=== PATIENT | female | born 1995 | race Two or more races ===

== ENCOUNTER 2021-10-27 11:29 | Outpatient (REF) | payer OTHER, SELFPAY ==
--- NOTE | 2021-10-27 13:59 | MHC.AU.ANO ---
Adult Audiological Evaluation Date of Visit: 10/27/21 Radio Talk Show Host Used: Not Applicable Reason for Appointment: Audiologic re-evaluation due to significant increase in hearing difficulties, sound distortion, and tinnitus for the left ear. 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 She was fit with a Right Phonak Bolero B 50-P aid for the right ear and a Phonak CROS B-312 for the left ear in October 2017. Raisa reported she had difficulty adjusting to the CROS system and only wore them for work. Last year she lost the hearing aids during a move and needs replacements. Does patient feel they have a hearing loss?: Yes If Yes, Which Ear?: Left Ear When Was Hearing Difficulty First Noticed?: Age 16 Has hearing been tested previously?: Yes Previous Hearing Test Results: Right ear - Normal hearing thresholds through all frequencies with 100% speech understanding at 45 dB HL. Left ear - Severe mixed hearing loss at 250 and 500 Hz, rising to a moderate loss at 6281-1501 Hz, dropping to a profound sensorineural hearing loss at 8000 Hz. with 68% speech discrimination at 100 dB HL Ear History: Bothersome Tinnitus/Ringing/Noises in Ears: Left Ear Medical History: Medication List: Tramadol, Seroquel, Vistaril Otoscopy: Right Ear: Unremarkable Left Ear: Unremarkable Tympanometry: Tympanometry performed due to: To assess integrity of the middle ear system Right Ear: Normal Middle Ear System (Type A) Left Ear: Hypercompliant Middle Ear System (Type Ad) Otoacoustic Emissions Not performed at today's visit. Hearing Evaluation: Transducer(s) Used: Insert Earphones Bone Conduction Method: Conventional Audiometry Stimuli Used: Pure Tones Right Ear: Description of Hearing: Normal hearing thresholds 250-8000 Hz. Left Ear: Description of Hearing: Severe rising to moderately-severe mixed hearing loss at 250-4000 Hz, dropping to a profound loss at 8000 Hz. Speech Recognition Threshold (SRT): Method Used: Monitored Live Voice Stimuli Used: Spondee Words Right Ear: 5 dB HL Left Ear: 70 dB HL Word Discrimination: Method: Recorded Lists Word Lists Used: NU-6 Right Ear: 100% at 50 dB HL Left Ear: 10% at 95 dB HL 20% at 100 dB HL Most Comfortable Level (MCL): Left Ear: 95 dB HL Comparison: Compared to most recent evaluation: Right ear thresholds and speech understanding is overall stable. Left ear thresholds have decreased 5-10 dB with a significant decrease in speech understanding. Recommendations: Referral to Camera Repair Technician Dr. Jose Jacobs is recommended for further assessment of the signficant decrease in left ear speech discrimination, increased tinnitus, and ear discomfort. If medically cleared for a CROS system, will obtain prior authorization for replacement hearing aids as the lost aids were received less than 5 years ago. Audiological re-evaluation in one year. Will send a reminder card. Diagnosis: Primary Diagnosis: H90.72 Mixed HL, Unilateral, Left Ear, W/Unrestricted Contralateral Secondary Diagnosis: H69.92 Unspecified Eustachian Tube Dysfunction, Left Ear Services Performed: Comprehensive Audiological Evaluation (CPT 41329) Tympanometry (CPT 43747) Signature: Provider: Carlton Trivedi, CCC-A
== END 2021-10-27 11:30 | disposition home or self-care (01) ==
LOC: HO.SH 11:29
PROVIDERS: Visit Provider Physician Assistant
DX: H90.72 Mixed conductive and sensorineural hearing loss, unilateral, left ear, with unrestricted hearing on the contralateral side (principal); H69.92 Unspecified Eustachian tube disorder, left ear
CPT/HCPCS: 92557; 92567

== ENCOUNTER 2022-11-20 17:13 | Inpatient (IN) | payer OTHER, SELFPAY ==
--- NOTE | ~2022-11-20 | XR_ITS ---
EXAMINATION: XR WRIST, LEFT CLINICAL INFORMATION: Swelling and pain COMPARISON: None TECHNIQUE: PA, lateral, oblique, and scaphoid views of the left wrist. FINDINGS: No acute fracture or dislocation. Joint spaces are maintained. Scapholunate interval is preserved. Soft tissue swelling about the wrist. XR/XR wrist LT min 3V IMPRESSION: 1. No acute osseous injury. 2. Prominent soft tissue tissue swelling about the wrist.
--- NOTE | 2022-11-20 17:26 | ED.PSYCH ---
HPI - Psych General Stated Complaint: SEC 12, restrained per EMS Time Seen by Provider: 11/20/22 17:26 Source: EMS Mode of arrival: EMS Limitations: other (Unwilling to talk) History of Present Illness HPI Narrative: Patient comes to the emergency room via ambulance from [facility] in the community. Patient was in an appointment, endorsed suicidal ideation with a plan of overdosing. She was Section 12. Patient ran out of the building, tried running into traffic, patient had to be physically restrain. Here in the emergency room, patient is calm, unwilling to talk, but willing to cooperate, get changed over and get blood work. Related Data Allergies Allergy/AdvReac Type Severity Reaction Status Date / Time No Known Allergies Allergy Unverified 07/29/20 18:59 [No Known Allergies*] Review of Systems Review of Systems: Yes Other (Unwilling to talk) [facility] Past Medical History Source: unable to obtain (Patient unwilling to talk) Physical Exam Const: Other: Appearance: Alert. No acute distress. Eyes: Pupils equal, round and reactive to light. ENT: Pharynx normal. Neck: Normal inspection. Neck supple. No lymph nodes noted. No crepitus CVS: Normal heart rate and rhythm. Pulses normal. Normal S1 and S2 Respiratory: No respiratory distress. Breath sounds normal. No Wheezing. No rales Abdomen: Soft and nontender. No rigidity. No distention. Skin: Skin warm and dry. Normal skin color. Normal skin turgor. Extremities: No lower extremity edema. No Lacerations. No Rash Neuro: CN 2 through 12 grossly intact Psych: calm, unwilling to talk, flat affect Course Course Course Narrative: Patient came in handcuffs and soft restraints in the lower extremities. They were all removed, patient still unwilling to talk but she is following directions. Blood work pending. Care team consult pending. Physician observation started at 17:30 Medical Decision Making Differential Diagnosis Differential Diagnoses: The differential diagnosis associated with the presentation includes (Suicidal ideation, depression, anxiety) Admission/Observation Consideration of admission/observation: Escalation of care including admission/observation considered (Patient will be on observation until [facility] or the care team can talk to the patient.) Discharge Plan Discharge Clinical Impression: Suicidal ideation Patient Disposition: Still a Patient
[2022-11-20 17:27] VITALS: BP 132/77; PULSE 86; RESP 18; TEMP 37.2; O2SAT 100; BMI 18.6
[2022-11-20 17:59] LABS: Appearance Urine Cloudy; Color Urine Yellow; Glucose Urine UA Negative (Negative); Leukocyte Esterase Urine Negative (Negative); Nitrite Urine Negative (Negative); PH 5.5 (5.0-9.0); Specific Gravity - Urine 1.015 (1.005-1.025); UMIC TRIGGER UACC YES; Urine Blood Moderate (2+) (Negative); Urine Ketones Trace mg/dL (Negative); Urine Protein 300 (3+) mg/dL (Neg-Trace)
[2022-11-20 18:00] LABS: UPreg QC Valid YES; Urine Pregnancy NEGATIVE (NEGATIVE)
[2022-11-20 18:08] LABS: Amphetamine Screen Urine Not Detected (Not Detect); Barbiturates, Urine Not Detected (Not Detect); Benzodiazepines Screen Urine Not Detected (Not Detect); Cannabinoid Screen Urine POSITIVE (Not Detect); Cocaine Screen Urine Not Detected (Not Detect); Fentanyl, urine Not Detected (Not Detect); Opiate Screen Urine Not Detected (Not Detect); Phencyclidine Screen Urine Not Detected (Not Detect)
[2022-11-20 18:12] LABS: COVID-19 Test Negative (Negative); IDNOW Serial# 16C4AD1C
[2022-11-20 18:17] LABS: Bacteria Urine 1+ (None Seen); UACC Culture Trigger YES
--- NOTE | 2022-11-20 18:28 | MHC.CARE ---
[facility]O evaluated pt in the community and she arrives as a bedsearch.
--- NOTE | 2022-11-20 21:59 | MHC.EDTECH ---
PATIENT CONTINUES TO REFUSE LABS. RN AWARE.
[2022-11-21] MEDS: hydrOXYzine HCL 50 MG TABLET PO ×2 (05:40→11:17)
--- NOTE | 2022-11-21 05:45 | PC.NURSE ---
Patient slept through the night, no distress observed/reported, patient just woke up reported anxiety/Hydroxyzine 50 mg administered as ordered/pending effect, patient refused her night time medication, refused blood draw but compliant with remaining lab orders, behavior at this time is non concerning but unpredictable, disposition per [facility] is section 12 inpatient bed search, VSS, will continue to monitor.
[2022-11-21 05:54] VITALS: BP 146/81; PULSE 88; RESP 16; TEMP 36.7; O2SAT 98
[2022-11-21] MEDS: LORazepam 1 MG TABLET 2 MG PO (11:54)
--- NOTE | 2022-11-21 14:29 | MHC.CARE ---
Patient remains a bed search
[2022-11-21] MEDS: OLANZapine 5 MG TABLET PO (20:25)
[2022-11-21 20:31] VITALS: BP 125/61; PULSE 70; RESP 17; TEMP 37.1
--- NOTE | 2022-11-22 05:57 | PC.NURSE ---
Patient slept through the night, no distress observed/reported, medication compliant, continue refusing blood draw, behavior at this time is non concerning but unpredictable, disposition per [facility] is section 12 inpatient bed search, MSU completed by care team, SATHYA, will continue to monitor.
[2022-11-22 06:38] VITALS: BP 112/55; PULSE 65; RESP 15; TEMP 37.3; O2SAT 98
--- NOTE | 2022-11-22 07:10 | PC.NURSE ---
patient appears to remain at rest at present respirations are even and unlabored patient appears in no distress.
[2022-11-22] MEDS: hydrOXYzine HCL 50 MG TABLET PO ×3 (10:06→20:11)
[2022-11-22 12:31] VITALS: BP 119/72; PULSE 73; RESP 18; TEMP 36.9; O2SAT 98
--- NOTE | 2022-11-22 15:20 | PC.NURSE ---
report received from FENG Oconnor. Pt is requesting hydroxyzine for anxiety. Pt provided with PRN.
[2022-11-22 16:17] VITALS: BP 128/79; PULSE 71; RESP 16; TEMP 36.2; O2SAT 98
[2022-11-22 16:28] VITALS: BMI 21.7
[2022-11-22] MEDS: OLANZapine 5 MG TABLET PO (20:02)
[2022-11-22] MEDS: traZODone HCL 50 MG TABLET PO (21:25)
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
[2022-11-23 06:00] VITALS: BP 134/74; PULSE 66; RESP 16; TEMP 36.9; O2SAT 98
[2022-11-23 07:00] VITALS: BMI 21.7
[2022-11-23 09:00] LABS: Estimated Average Glucose 100 mg/dL; Hemoglobin A1c % 5.1 %
[2022-11-23] MEDS: hydrOXYzine HCL 50 MG TABLET PO ×3 (09:16→20:48)
[2022-11-23 09:29] LABS: Alanine Aminotransferase 25 U/L (0-31); Albumin Level 3.8 g/dL (3.5-5.0); Alkaline Phosphatase 40 U/L (39-117); Anion Gap 12 (12-20); Aspartate Amino Transferase 32 U/L (5-31); Bilirubin Total 0.4 mg/dL (0.0-1.0); Blood Urea Nitrogen 7 mg/dL (9-16); Calcium 8.9 mg/dL (8.4-10.2); Carbon Dioxide 22 mmol/L (22-29); Chloride 107 mmol/L (96-108); Cholesterol 163 mg/dL; Creatinine Clr Calc Pharmacy 91.5; Estimated Glomerular Filt Rate > 60; Glucose Fasting 93 mg/dL (60-99); HDL Cholesterol 45 mg/dL; LDL Cholesterol Calculated 109 mg/dl; Potassium 4.4 mmol/L (3.3-5.1); Sodium 137 mmol/L (135-145); Total Protein 6.4 g/dL (6.5-8.0); Triglycerides 47 mg/dL
[2022-11-23 09:30] LABS: Thyroid Stimulating Hormone 0.79 uIU/mL (0.32-4.0)
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
[2022-11-23] MEDS: Propranolol HCL 10 MG TABLET PO ×2 (11:18→20:05)
[2022-11-23] MEDS: Sertraline HCL 25 MG TABLET PO (11:18)
[2022-11-23 11:19] VITALS: BP 137/90
[2022-11-23 18:00] VITALS: BP 112/69; PULSE 78; RESP 16; TEMP 36; O2SAT 97
[2022-11-23] MEDS: OLANZapine 5 MG TABLET PO (20:05)
[2022-11-23 20:25] VITALS: BP 134/90; PULSE 79; RESP 16; TEMP 36.4; O2SAT 98
[2022-11-24 06:00] VITALS: BP 131/91; PULSE 86; RESP 16; TEMP 36.6; O2SAT 95
[2022-11-24] MEDS: hydrOXYzine HCL 50 MG TABLET PO (09:05)
[2022-11-24] MEDS: Sertraline HCL 25 MG TABLET PO (09:05)
[2022-11-24] MEDS: Propranolol HCL 10 MG TABLET PO (09:05)
--- NOTE | 2022-11-24 11:04 | HO.PSYCHPN ---
Subjective Subjective Date of Service: 11/24/22 Reason For Visit: SEC 12, restrained per EMS Subjective Notes: Conditional Voluntary Interim History: Pt reports poor sleep. She continues to report feeling anxious, which presents more as mild labile mood. Pt denies SI/HI. She reports periods of increase irritability. She denies VH/AH- does not appear internally preoccupied. we discussed increasing olanzapine 10mg po qhs. increase propranolol. Pt more open to try mood stabilizer such as lithium. Medication Compliance: Yes Side effects from medications: No Attending Groups: No Review of Systems Review of Systems Yes Other (Unwilling to talk) Constitutional: Reports no additional constitutional complaints Eyes: Reports no additional eye complaints Reports system reviewed and no additional complaints, except as documented Cardiovascular: Denies chest pain, Denies chest pain at rest, Denies lightheadedness and Denies dyspnea Respiratory: Denies cough and Denies dyspnea Mental Status Exam Mental Status Exam Narrative: Appearance:casually groomed, fair hygiene, in NAD Behavior: superficially cooperative Psychomotor: no agitation or retardation noted Speech: clear, normal rate/rhythm/volume, spontaneous TP: linear TC: no signs of psychosis, wanting to be referred to [facility] Mood: better Affect: less irritable SI: none HI: none Delusions: none VH/AH: none Insight/judgment: fair x 2. Memory/cog: alert, oriented x 3. grossly intact to conversational testing. Diagnostics Vital Signs (24Hr): Vital Signs - 24 hr 11/23/22 11:19 11/23/22 18:00 11/23/22 20:25 Temperature 96.8 F 97.6 F Pulse Rate 78 79 Respiratory Rate 16 16 Blood Pressure 137/90 H 112/69 134/90 H Pulse Oximetry 97 98 Oxygen Delivery Method Room Air Room Air 11/24/22 06:00 Temperature 97.9 F Pulse Rate 86 Respiratory Rate 16 Blood Pressure 131/91 H Pulse Oximetry 95 Oxygen Delivery Method Room Air BMI result Body Mass Index 21.7 Labs 11/23/22 08:15 Labs: Laboratory Results - last 48 hr 11/23/22 11/23/22 08:15 08:15 Sodium 137 Potassium 4.4 Chloride 107 Carbon Dioxide 22 Anion Gap 12 BUN 7 L Creatinine 0.77 Estim Creat Clear Calc 91.5 Estimated GFR > 60 Fasting Glucose 93 Estimat Average Glucose 100 Hemoglobin A1c % 5.1 Calcium 8.9 Total Bilirubin 0.4 AST 32 H ALT 25 Alkaline Phosphatase 40 Total Protein 6.4 L Albumin 3.8 Triglycerides 47 Cholesterol 163 LDL Cholesterol, Calc 109 HDL Cholesterol 45 TSH 0.79 Imaging Radiology Impressions: ITS Impressions Wrist X-Ray 11/20/22 18:57 IMPRESSION: 1. No acute osseous injury. 2. Prominent soft tissue tissue swelling about the wrist. Medications Medications Current Medications Acetaminophen (Acetaminophen 325 Mg Tablet) 650 mg PO Q6H PRN PRN Reason: Headache/Pain Mild Scale (1-3) Al Hydroxide/Mg Hydroxide (Magnesium Hydrox/Alum Hydrox 30 Ml Oral.Susp) 30 ml PO Q6H PRN PRN Reason: Heartburn/Nausea Hydroxyzine HCl (Hydroxyzine Hcl 50 Mg Tablet) 50 mg PO Q4H PRN PRN Reason: Anxiety Last Admin: 11/24/22 09:05 Dose: 50 mg Hydroxyzine HCl (Hydroxyzine Hcl 25 Mg Tablet) 25 mg PO Q6H PRN PRN Reason: Anxiety Magnesium Hydroxide (Milk Of Magnesia 30 Ml Oral.Susp) 30 ml PO DAILY PRN PRN Reason: Constipation Mirtazapine (Mirtazapine 15 Mg Tablet) 15 mg PO BEDTIME EMIR Olanzapine (Olanzapine 5 Mg Tablet) 5 mg PO BEDTIME EMIR Last Admin: 11/23/22 20:05 Dose: 5 mg Olanzapine (Olanzapine 10 Mg Tablet) 10 mg PO Q6H PRN PRN Reason: agitation Propranolol HCl (Propranolol Hcl 20 Mg Tablet) 20 mg PO TID EMIR; Protocol Sertraline HCl (Sertraline Hcl 25 Mg Tablet) 25 mg PO DAILY EMIR Last Admin: 11/24/22 09:05 Dose: 25 mg Trazodone HCl (Trazodone Hcl 50 Mg Tablet) 50 mg PO BEDTIME PRN PRN Reason: Insomnia Last Admin: 11/22/22 21:25 Dose: 50 mg Allergies Allergies Allergy/AdvReac Type Severity Reaction Status Date / Time No Known Allergies Allergy Unverified 07/29/20 18:59 [No Known Allergies*] Assessment & Plan Assessment & Plan (1) Bipolar 2 disorder: Status: Acute Code(s): F31.81 - Bipolar II disorder (2) Borderline personality disorder: Status: Acute Code(s): F60.3 - Borderline personality disorder Plan Ms. Telles is a 27 year-old woman with hx of Bipolar 2 disorder, PTSD, BPD who was assessed in her therapist office by N[facility]O after she disclosed SI with plan to OD. She has previous hx of OD on aspirin in 2019. Pt combative, explosive and irritable while in the ED. Uto negative. Today, less irritable, reports sertraline was helpful and wants to restart- discussed monitoring for increase irritability and labile mood. She also agrees to try propanolol for anxiety/impulsive behaviors with less impact on her BP. We discussed risks, benefits and alternative treatment options. PLAN 1. Admit to M5, CV, 15 minutes checks for safety 2. Start sertraline 25mg po daily, propanolol 10mg po BID, continue olanzapine 5mg po qhs. prn hydroxizine. 3. obtain collateral information 4. Aftercare planning. 11/24 more open to try mood stabilizer and increase olanzapine. Increase olanzapine to 10mg po qhs. Start lithium 300mg po BID, increase propanolol to 20mg po TID (initially prescribe for irritability as pt declined any other med changes). Reason for contiued inpatient stay Substantial Risk for: harm to self Time Spent With Patient Time: Total time managing care of this patient today ____ minutes.
[2022-11-24] MEDS: LORazepam 1 MG TABLET PO (12:12)
[2022-11-24] MEDS: Lithium Carbonate 300 MG CAPSULE PO ×2 (12:12→20:30)
[2022-11-24] MEDS: Propranolol HCL 20 MG TABLET PO ×2 (15:16→20:31)
[2022-11-24 18:00] VITALS: BP 137/92; PULSE 75; RESP 16; TEMP 36.4; O2SAT 96
[2022-11-24] MEDS: Mirtazapine 15 MG TABLET PO (20:30)
[2022-11-24] MEDS: OLANZapine 10 MG TABLET PO (20:31)
[2022-11-25 08:52] VITALS: BP 142/79; PULSE 56; RESP 16; TEMP 36.6; O2SAT 98
[2022-11-25] MEDS: Propranolol HCL 20 MG TABLET PO ×3 (08:56→21:23)
[2022-11-25] MEDS: Sertraline HCL 25 MG TABLET PO (08:56)
[2022-11-25] MEDS: Lithium Carbonate 300 MG CAPSULE PO ×2 (08:56→21:23)
[2022-11-25] MEDS: hydrOXYzine HCL 50 MG TABLET PO ×3 (08:56→17:40)
--- NOTE | 2022-11-25 10:32 | HO.PSYCHPN ---
Subjective Subjective Date of Service: 11/25/22 Reason For Visit: SEC 12, restrained per EMS Interim History: Patient talking a little briskly. Said she has trouble sleeping last night but does not want any medications changed at all. Including does not want lithium moved to bedtime. For while she initially said she is having trouble sleeping, she said she did not want to be too tired the next day either. Patient said propranolol has not helped with anxiety; blood pressure mildly elevated but heart rate is at 56 so promotion writer held off on increasing dose. Patient said she just wanted to remain on the same dose anyway and see how it goes. Patient reports that SI remains but it is chronic, is at a baseline level and able to be ignored Mental Status Exam Mental Status Exam Narrative: Pt is alert and oriented; behavior is cooperative but a little guarded; mostly calm; patient is not in distress; dressed in casual attire and well groomed; mood is described as ok and affect congruent; eye contact appropriate; Speech is a little brisk, mildly pressured but normal volume and prosody; no psychomotor agitation/retardation present; thought process is goal directed; Thought content is on tx; otherwise pertinent to relevant topics and without any delusional content, paranoid ideations or grandiosity; intermittent passive SI but able to be ignored; no HI. There is no evidence of perceptual disturbance and denies AVH. Patients insight and judgment are impaired but improved. Diagnostics Vital Signs (24Hr): Vital Signs - 24 hr 11/24/22 18:00 11/25/22 08:52 Temperature 97.6 F 97.8 F Pulse Rate 75 56 Respiratory Rate 16 16 Blood Pressure 137/92 H 142/79 H Pulse Oximetry 96 98 Oxygen Delivery Method Room Air Room Air BMI result Body Mass Index 21.7 Labs 11/23/22 08:15 Imaging Radiology Impressions: ITS Impressions Wrist X-Ray 11/20/22 18:57 IMPRESSION: 1. No acute osseous injury. 2. Prominent soft tissue tissue swelling about the wrist. Medications Medications Current Medications Acetaminophen (Acetaminophen 325 Mg Tablet) 650 mg PO Q6H PRN PRN Reason: Headache/Pain Mild Scale (1-3) Al Hydroxide/Mg Hydroxide (Magnesium Hydrox/Alum Hydrox 30 Ml Oral.Susp) 30 ml PO Q6H PRN PRN Reason: Heartburn/Nausea Hydroxyzine HCl (Hydroxyzine Hcl 50 Mg Tablet) 50 mg PO Q4H PRN PRN Reason: Anxiety Last Admin: 11/25/22 08:56 Dose: 50 mg Hydroxyzine HCl (Hydroxyzine Hcl 25 Mg Tablet) 25 mg PO Q6H PRN PRN Reason: Anxiety [place] Carbonate ([place] Carbonate 300 Mg Capsule) 300 mg PO BID [facility] Last Admin: 11/25/22 08:56 Dose: 300 mg Magnesium Hydroxide (Milk Of Magnesia 30 Ml Oral.Susp) 30 ml PO DAILY PRN PRN Reason: Constipation Mirtazapine (Mirtazapine 15 Mg Tablet) 15 mg PO BEDTIME EMIR Last Admin: 11/24/22 20:30 Dose: 15 mg Olanzapine (Olanzapine 10 Mg Tablet) 10 mg PO Q6H PRN PRN Reason: agitation Olanzapine (Olanzapine 10 Mg Tablet) 10 mg PO BEDTIME [facility] Last Admin: 11/24/22 20:31 Dose: 10 mg Propranolol HCl (Propranolol Hcl 20 Mg Tablet) 20 mg PO TID [facility]; Protocol Last Admin: 11/25/22 08:56 Dose: 20 mg Sertraline HCl (Sertraline Hcl 25 Mg Tablet) 25 mg PO DAILY [facility] Last Admin: 11/25/22 08:56 Dose: 25 mg Trazodone HCl (Trazodone Hcl 50 Mg Tablet) 50 mg PO BEDTIME PRN PRN Reason: Insomnia Last Admin: 11/22/22 21:25 Dose: 50 mg Allergies Allergies Allergy/AdvReac Type Severity Reaction Status Date / Time No Known Allergies Allergy Unverified 07/29/20 18:59 [No Known Allergies*] Assessment & Plan Assessment & Plan (1) Bipolar 2 disorder: Status: Acute Code(s): F31.81 - Bipolar II disorder (2) Borderline personality disorder: Status: Acute Code(s): F60.3 - Borderline personality disorder Plan Ms. Telles is a 27 year-old woman with hx of Bipolar 2 disorder, PTSD, BPD who was assessed in her therapist office by Elian after she disclosed SI with plan to OD. She has previous hx of OD on aspirin in 2019. Pt combative, explosive and irritable while in the ED. Uto negative. Today, less irritable, reports sertraline was helpful and wants to restart- discussed monitoring for increase irritability and labile mood. She also agrees to try propanolol for anxiety/impulsive behaviors with less impact on her BP. We discussed risks, benefits and alternative treatment options. PLAN 1. Admit to M5, CV, 15 minutes checks for safety 2. Start sertraline 25mg po daily, propanolol 10mg po BID, continue olanzapine 5mg po qhs. prn hydroxizine. 3. obtain collateral information 4. Aftercare planning. Hospital course: 11/24 more open to try mood stabilizer and increase olanzapine. Increase olanzapine to 10mg po qhs. Start lithium 300mg po BID, increase propanolol to 20mg po TID (initially prescribe for irritability as pt declined any other med changes). 11/25 patient said still having some trouble sleeping but does not want med changes and will continue as is for now. Says propranolol not that helpful but does not want to change at this time. Continue current treatment plan Discussed case with nursing; met with patient; reviewed vitals and HR mildly bradycardic and so will not increase propranolol at this time; reviewed primary team providers' progress notes Patient educated on: diagnosis and medication risk/benefits Informed Consent: understands and further education needed Reason for contiued inpatient stay Substantial Risk for: rapid decompensation and med/psych decompensation Time Spent With Patient Time: Total time managing care of this patient today ____ minutes.
[2022-11-25 15:28] VITALS: BP 135/89; PULSE 70
[2022-11-25 18:00] VITALS: BP 135/89; PULSE 70; RESP 18; TEMP 36.6; O2SAT 98
[2022-11-25] MEDS: traZODone HCL 50 MG TABLET PO (21:23)
[2022-11-25] MEDS: OLANZapine 10 MG TABLET PO (21:23)
[2022-11-25] MEDS: Mirtazapine 15 MG TABLET PO (21:23)
[2022-11-26 09:25] VITALS: BP 123/76; PULSE 68; RESP 16; O2SAT 96
[2022-11-26] MEDS: Sertraline HCL 25 MG TABLET PO ×2 (09:28→12:33)
[2022-11-26] MEDS: Lithium Carbonate 300 MG CAPSULE PO ×2 (09:28→20:43)
[2022-11-26] MEDS: Propranolol HCL 20 MG TABLET PO ×3 (09:28→20:44)
--- NOTE | 2022-11-26 09:33 | P.PNPSI_ITS ---
Subjective Subjective Date of Service: 11/26/22 Reason For Visit: SEC 12, restrained per EMS Interim History: Patient reports better sleep last night. SI remains but still in the back of h er mind and not a problem. Patient also says that propranolol does help it just wears off too quickly and asked if she could have a higher dose; reviewed vitals and heart rate, BP within normal limits however not sure that that medication would last longer and so patient will just use hydroxyzine in-between. She did agree to increased Zoloft. Wants lithium to remain b.i.d.. Otherwise no compla ints and no requests, social in the milieu. Mental Status Exam Mental Status Exam Narrative: Pt is alert and oriented; behavior is cooperative, more friendly, more calm; less guarded; patient is not in distress; dressed in casual attire and well groomed; mood is described as ok and affect congruent; eye contact appropriate; Speech is less pressured and normal volume and prosody; no psychomotor agitation/retardation present; thought process is goal directed; Thought content is on tx; otherwise pertinent to relevant topics and without any delusional content, paranoid ideations or grandiosity; intermittent passive SI but able to be ignored; no HI. There is no evidence of perceptual disturbance and denies AVH. Patients insight and judgment are impaired but improved. Diagnostics Vital Signs (24Hr): Vital Signs - 24 hr 11/25/22 15:28 11/25/22 18:00 Temperature 98 F Pulse Rate 70 70 Respiratory Rate 18 Blood Pressure 135/89 135/89 Pulse Oximetry 98 BMI result Body Mass Index 21.7 Labs 11/23/22 08:15 Imaging Radiology Impressions: ITS Impressions Wrist X-Ray 11/20/22 18:57 IMPRESSION: 1. No acute osseous injury. 2. Prominent soft tissue tissue swelling about the wrist. Medications Medications Current Medications Acetaminophen (Acetaminophen 325 Mg Tablet) 650 mg PO Q6H PRN PRN Reason: Headache/Pain Mild Scale (1-3) Al Hydroxide/Mg Hydroxide (Magnesium Hydrox/Alum Hydrox 30 Ml Oral.Susp) 30 ml PO Q6H PRN PRN Reason: Heartburn/Nausea Hydroxyzine HCl (Hydroxyzine Hcl 50 Mg Tablet) 50 mg PO Q4H PRN PRN Reason: Anxiety Last Admin: 11/25/22 17:40 Dose: 50 mg Hydroxyzine HCl (Hydroxyzine Hcl 25 Mg Tablet) 25 mg PO Q6H PRN PRN Reason: Anxiety [place] Carbonate ([place] Carbonate 300 Mg Capsule) 300 mg PO BID [facility] Last Admin: 11/26/22 09:28 Dose: 300 mg Magnesium Hydroxide (Milk Of Magnesia 30 Ml Oral.Susp) 30 ml PO DAILY PRN PRN Reason: Constipation Mirtazapine (Mirtazapine 15 Mg Tablet) 15 mg PO BEDTIME EMIR Last Admin: 11/25/22 21:23 Dose: 15 mg Olanzapine (Olanzapine 10 Mg Tablet) 10 mg PO Q6H PRN PRN Reason: agitation Olanzapine (Olanzapine 10 Mg Tablet) 10 mg PO BEDTIME [facility]R Last Admin: 11/25/22 21:23 Dose: 10 mg Propranolol HCl (Propranolol Hcl 20 Mg Tablet) 20 mg PO TID [facility]; Protocol Last Admin: 11/26/22 09:28 Dose: 20 mg Sertraline HCl (Sertraline Hcl 25 Mg Tablet) 25 mg PO DAILY [facility] Last Admin: 11/26/22 09:28 Dose: 25 mg Trazodone HCl (Trazodone Hcl 50 Mg Tablet) 50 mg PO BEDTIME PRN PRN Reason: Insomnia Last Admin: 11/25/22 21:23 Dose: 50 mg Allergies Allergies Allergy/AdvReac Type Severity Reaction Status Date / Time No Known Allergies Allergy Unverified 07/29/20 18:59 [No Known Allergies*] Assessment & Plan Assessment & Plan (1) Bipolar 2 disorder: Status: Acute Code(s): F31.81 - Bipolar II disorder (2) Borderline personality disorder: Status: Acute Code(s): F60.3 - Borderline personality disorder Plan Ms. Telles is a 27 year-old woman with hx of Bipolar 2 disorder, PTSD, BPD who was assessed in her therapist office by [facility] after she disclosed SI with plan to OD. She has previous hx of OD on aspirin in 2019. Pt combative, explosive and i rritable while in the ED. Uto negative. Today, less irritable, reports sertraline was helpful and wants to restart- discussed monitoring for increase irritability and labile mood. She also agrees to try propanolol for anxiety/impulsive behaviors with less impact on her BP. We discussed risks, benefits and alternative treatment options. PLAN 1. Admit to M5, CV, 15 minutes checks for safety INCREASE TO sertraline 50mg po daily, [place] Carbonate 300 mg PO BID EMIR -lithium level/labs due 11/29/22 Mirtazapine5 mg PO BEDTIME EMIR Olanzapine 10 mg PO Q6HPRN Reason: agitation Olanzapine 10 mg PO BEDTIME EMIR propanolol 20mg po BID, prn hydroxizine. obtain collateral information Aftercare planning. Hospital course: 11/24 more open to try mood stabilizer and increase olanzapine. Increase natalie zapine to 10mg po qhs. Start lithium 300mg po BID, increase propanolol to 20mg po TID (initially prescribe for irritability as pt declined any other med changes). 11/25 patient said still having some trouble sleeping but does not want med changes and will continue as is for now. Says propranolol not that helpful but does not want to change at this time. Continue current treatment plan Discussed case with nursing; met with patient; reviewed vitals and HR mildly bradycardic and so will not increase propranolol at this time; reviewed primary team providers' progress notes 11/26 patient a little more calm, slept better; agreed to increase Zoloft. Discussed case with nursing; met with patient; reviewed vitals and WNL; Patient educated on: diagnosis and medication risk/benefits Informed Consent: understands Reason for contiued inpatient stay Substantial Risk for: rapid decompensation and med/psych decompensation Time Spent With Patient Time: Total time managing care of this patient today ____ minutes.
[2022-11-26] MEDS: hydrOXYzine HCL 25 MG TABLET PO (10:33)
[2022-11-26 18:00] VITALS: BP 133/79; PULSE 59; RESP 18; TEMP 36.3; O2SAT 99
[2022-11-26] MEDS: hydrOXYzine HCL 50 MG TABLET PO (18:47)
[2022-11-26] MEDS: Mirtazapine 15 MG TABLET PO (20:43)
[2022-11-26] MEDS: OLANZapine 10 MG TABLET PO (20:44)
[2022-11-26] MEDS: traZODone HCL 50 MG TABLET PO (20:44)
[2022-11-27 06:00] VITALS: BP 115/70; PULSE 80; RESP 14; TEMP 36.4; O2SAT 99
[2022-11-27] MEDS: Propranolol HCL 20 MG TABLET PO ×3 (08:29→20:50)
[2022-11-27] MEDS: Lithium Carbonate 300 MG CAPSULE PO ×2 (08:29→20:52)
[2022-11-27] MEDS: Sertraline HCL 50 MG TABLET PO (08:29)
[2022-11-27] MEDS: hydrOXYzine HCL 25 MG TABLET PO (11:06)
[2022-11-27 14:45] VITALS: BP 143/79
[2022-11-27] MEDS: hydrOXYzine HCL 50 MG TABLET PO ×2 (14:51→20:52)
--- NOTE | 2022-11-27 18:14 | P.PNPSI_ITS ---
Subjective Subjective Date of Service: 11/27/22 Reason For Visit: SEC 12, restrained per EMS Subjective Notes: Conditional Voluntary Healthcare Proxy: No Guardianship: No Medical Problems Affecting Mental Status: No Interim History: Team report pt as having limited participation in the milieu and stating she is feeling ready to return home. Team working on VNA referral. Met with pt, who aff irms, I had needed some support and containment when I came in. I am feeling better now and feel prepared to return to my life. Pt requested a return to work letter with changes made to her hours, 7a-7p to 9a-9p so she can re- establish her med regime. She will come to OP for labs-Li,CMP, TSH on 11/29-given a lab slip. Review of meds, regime, tx plan. Pt prepared to discharge and asks for medications to be sent to [facility]. Medication Compliance: Yes Side effects from medications: No Attending Groups: Intermittent Review of Systems Acute medical concerns: No Medical Review of Systems: unchanged Mental Status Exam Mental Status Exam Patient Appearance: Appropriate Patient Orientation: Person, Place, Time and Situation Level of Consciousness: Alert Patient Behavior: Appropriate, Talkative, Cooperative and Good Eye Contact Mood Description: Constricted Affect Description: Constricted Patient Cognition Impaired: No Ability to Follow Directions: Good Speech Pattern: Spontaneous Speech Memory Description: Intact Hallucinations: None Delusions: Not Present Thought Process: Intact and Goal Oriented Thought Content: positive for Intact and positive for Goal Oriented Judgement: Good Diagnostics Vital Signs (24Hr): Vital Signs - 24 hr 11/27/22 06:00 11/27/22 14:45 Temperature 97.5 F Pulse Rate 80 Respiratory Rate 14 Blood Pressure 115/70 143/79 H Pulse Oximetry 99 Oxygen Delivery Method Room Air BMI result Body Mass Index 21.7 Labs 11/23/22 08:15 Imaging Radiology Impressions: ITS Impressions Wrist X-Ray 11/20/22 18:57 IMPRESSION: 1. No acute osseous injury. 2. Prominent soft tissue tissue swelling about the wrist. Medications Medications Current Medications Acetaminophen (Acetaminophen 325 Mg Tablet) 650 mg PO Q6H PRN PRN Reason: Headache/Pain Mild Scale (1-3) Al Hydroxide/Mg Hydroxide (Magnesium Hydrox/Alum Hydrox 30 Ml Oral.Susp) 30 ml PO Q6H PRN PRN Reason: Heartburn/Nausea Hydroxyzine HCl (Hydroxyzine Hcl 50 Mg Tablet) 50 mg PO Q4H PRN PRN Reason: Anxiety Last Admin: 11/27/22 14:51 Dose: 50 mg Hydroxyzine HCl (Hydroxyzine Hcl 25 Mg Tablet) 25 mg PO Q6H PRN PRN Reason: Anxiety Last Admin: 11/27/22 11:06 Dose: 25 mg [place] Carbonate ([place] Carbonate 300 Mg Capsule) 300 mg PO BID EMIR Last Admin: 11/27/22 08:29 Dose: 300 mg Magnesium Hydroxide (Milk Of Magnesia 30 Ml Oral.Susp) 30 ml PO DAILY PRN PRN Reason: Constipation Mirtazapine (Mirtazapine 15 Mg Tablet) 15 mg PO BEDTIME EMIR Last Admin: 11/26/22 20:43 Dose: 15 mg Olanzapine (Olanzapine 10 Mg Tablet) 10 mg PO Q6H PRN PRN Reason: agitation Olanzapine (Olanzapine 10 Mg Tablet) 10 mg PO BEDTIME EIMR Last Admin: 11/26/22 20:44 Dose: 10 mg Propranolol HCl (Propranolol Hcl 20 Mg Tablet) 20 mg PO TID EMIR; Protocol Last Admin: 11/27/22 14:45 Dose: 20 mg Sertraline HCl (Sertraline Hcl 50 Mg Tablet) 50 mg PO DAILY EMIR Last Admin: 11/27/22 08:29 Dose: 50 mg Trazodone HCl (Trazodone Hcl 50 Mg Tablet) 50 mg PO BEDTIME PRN PRN Reason: Insomnia Last Admin: 11/26/22 20:44 Dose: 50 mg Allergies Allergies Allergy/AdvReac Type Severity Reaction Status Date / Time No Known Allergies Allergy Unverified 07/29/20 18:59 [No Known Allergies*] Assessment & Plan Assessment & Plan (1) Bipolar 2 disorder: Status: Acute Code(s): F31.81 - Bipolar II disorder (2) Borderline personality disorder: Status: Acute Code(s): F60.3 - Borderline personality disorder Plan Ms. Telles is a 27 year-old woman with hx of Bipolar 2 disorder, PTSD, BPD who was assessed in her therapist office by Elian after she disclosed SI with plan to OD. She has previous hx of OD on aspirin in 2019. Pt combative, explosive and irritable while in the ED. Uto negative. Today, less irritable, reports sertraline was helpful and wants to restart- discussed monitoring for increase irritability and labile mood. She also agrees to try propanolol for anxiety/impulsive behaviors with less impact on her BP. We discussed risks, benefits and alternative treatment options. PLAN 1. Admit to M5, CV, 15 minutes checks for safety INCREASE TO sertraline 50mg po daily, [place] Carbonate 300 mg PO BID EMIR -lithium level/labs due 11/29/22 Mirtazapine5 mg PO BEDTIME EMIR Olanzapine 10 mg PO Q6HPRN Reason: agitation Olanzapine 10 mg PO BEDTIME EMIR propanolol 20mg po BID, prn hydroxizine. obtain collateral information Aftercare planning. Hospital course: 11/24 more open to try mood stabilizer and increase olanzapine. Increase olanzapine to 10mg po qhs. Start lithium 300mg po BID, increase propanolol to 20mg po TID (initially prescribe for irritability as pt declined any other med changes). 11/25 patient said still having some trouble sleeping but does not want med c hanges and will continue as is for now. Says propranolol not that helpful but does not want to change at this time. Continue current treatment plan Discussed case with nursing; met with patient; reviewed vitals and HR mildly bradycardic and so will not increase propranolol at this time; reviewed primary team providers' progress notes 11/26 patient a little more calm, slept better; agreed to increase Zoloft. Discussed case with nursing; met with patient; reviewed vitals and WNL; 11/27/21: Preparing for discharge [place] Level, CMP, TSH 11/29/21 Reports regime to be effective and without SE Discharge 11/29/22. Patient educated on: medication risk/benefits Informed Consent: understands Reason for contiued inpatient stay Substantial Risk for: stable for discharge Time Spent With Patient Time: Total time managing care of this patient today ___35_ minutes.
[2022-11-27 20:45] VITALS: BP 134/71; PULSE 64; TEMP 36.7
[2022-11-27] MEDS: traZODone HCL 50 MG TABLET PO (20:49)
[2022-11-27] MEDS: Mirtazapine 15 MG TABLET PO (20:49)
[2022-11-27] MEDS: OLANZapine 10 MG TABLET PO (20:51)
[2022-11-28] MEDS: Lithium Carbonate 300 MG CAPSULE PO (08:08)
[2022-11-28] MEDS: Sertraline HCL 50 MG TABLET PO (08:08)
[2022-11-28] MEDS: Propranolol HCL 20 MG TABLET PO (08:08)
[2022-11-28] MEDS: hydrOXYzine HCL 25 MG TABLET PO (08:10)
[2022-11-28 08:13] VITALS: BP 142/85; PULSE 66; RESP 18; TEMP 36.7; O2SAT 100
[2022-11-28] MEDS: hydrOXYzine HCL 50 MG TABLET PO (11:34)
--- NOTE | 2022-11-28 12:37 | PM.PSYDC ---
DS: Providers Provider Date of Service: 11/28/22 Date of admission: 11/22/22 14:31 Date of discharge: 11/28/22 Primary care physician: Unknown Physician Admitting clinician: Vilma Mart Attending physician on admission: Omari Aranda Attending physician on discharge: Omari Aranda Discharging clinician: Jeny Rawls DS: Diagnosis Discharge Diagnosis (1) Bipolar 2 disorder: Status: Acute (2) Borderline personality disorder: Status: Acute DS: Medications Discharge Medications Home Medications: Previous Rx's Medication Instructions Recorded hydroxyzine HCl 50 mg tablet 50 mg PO Q4H PRN Anxiety #60 tabs 11/27/22 lithium carbonate 300 mg capsule 300 mg PO BID #30 caps 11/27/22 mirtazapine 15 mg tablet 15 mg PO BEDTIME #15 tabs 11/27/22 olanzapine 10 mg tablet 10 mg PO BEDTIME #15 tabs 11/27/22 olanzapine 10 mg tablet 10 mg PO Q6H PRN agitation #15 tabs 11/27/22 propranolol 20 mg tablet 20 mg PO TID #45 tabs 11/27/22 sertraline 50 mg tablet 50 mg PO DAILY #15 tabs 11/27/22 trazodone 50 mg tablet 50 mg PO BEDTIME PRN Insomnia #15 11/27/22 tabs Mental Status Exam Mental Status Exam Patient Appearance: Appropriate Patient Orientation: Person, Place, Time and Situation Level of Consciousness: Alert Patient Behavior: Appropriate, Talkative, Cooperative and Good Eye Contact Mood Description: Constricted Affect Description: Constricted Patient Cognition Impaired: No Ability to Follow Directions: Good Speech Pattern: Spontaneous Speech Memory Description: Intact Hallucinations: None Delusions: Not Present Thought Process: Intact and Goal Oriented Thought Content: positive for Intact and positive for Goal Oriented Judgement: Good Data Data Completed and Pending Completed studies during hospitalization [Text1]: 11/23/22 11/23/22 08:15 08:15 Sodium 137 Potassium 4.4 Chloride 107 Carbon Dioxide 22 Anion Gap 12 BUN 7 L Creatinine 0.77 Estim Creat Clear Calc 91.5 Estimated GFR > 60 Fasting Glucose 93 Estimat Average Glucose 100 Hemoglobin A1c % 5.1 Calcium 8.9 Total Bilirubin 0.4 AST 32 H ALT 25 Alkaline Phosphatase 40 Total Protein 6.4 L Albumin 3.8 Triglycerides 47 Cholesterol 163 LDL Cholesterol, Calc 109 HDL Cholesterol 45 TSH 0.79 11/20/22 18:18 Urine clean catch - Urine zuniga top Urine Culture - Final No growth. Imaging Diagnostic Imaging Impressions Wrist X-Ray 11/20/22 18:57 IMPRESSION: 1. No acute osseous injury. 2. Prominent soft tissue tissue swelling about the wrist. DS: Summary Hospital Course Hospital Course: Admission to adult psychiatry for exacerbation of Bipolar Disorder, Type II. Olanzapine titrated. [place], Mirtazapine, Propranolol, Sertraline initiated Trileptal discontinued Pt discharged to return to work. She will have a [place] level, TSH, CMP on 11/29/22 Time spent discussing smoking cessation with patient: 3 to 10 minutes Status at Discharge Functional status at discharge: independent ambulation Overall status at discharge: patient is progressing back to baseline Time Spent with Patient Time attestation: Total time managing care of this patient today ____ minutes. 35 Time spent: Greater than 30 minutes Discharge Plan Discharge Anticipated Discharge Date/Time: 11/28/22 12:01 Patient Disposition: Home, Self-Care Discharge Diagnosis: Bipolar Disorder, Type 2 Referrals: [facility]: Partial Hospitalization Program(PHP) [Other] - 12/04/22 8:00 am (Referral for Partial Hospitalization Program ) Danielle Vega [Other] - 11/30/22 11:00 am (Follow-up discharge appointment with outpatient therapist Appointment is in person at [facility] ) [facility] [Other] - 12/07/22 4:00 pm (LEFT MESSAGE FOR A CALL BACK FOR D/ C F/U APPOINTMENT. and to call her at home for . in office) Dulce Scott [Other] - 11/30/22 4:20 pm (Scheduled psychiatry appointment with provider at [facility] Appointment is by video.) [facility] [Other] - 11/29/22 (fax [phone] Visiting RN will call the [place] to arrange a time for the visit. ) Discharge Medications: New trazodone 50 mg Tablet 50 mg PO BEDTIME PRN (Reason: Insomnia) Qty: 15 1RF olanzapine 10 mg Tablet 10 mg PO BEDTIME Qty: 15 1RF olanzapine 10 mg Tablet 10 mg PO Q6H PRN (Reason: agitation) Qty: 15 1RF hydroxyzine HCl 50 mg Tablet 50 mg PO Q4H PRN (Reason: Anxiety) Qty: 60 1RF lithium carbonate 300 mg Capsule 300 mg PO BID Qty: 30 1RF mirtazapine 15 mg Tablet 15 mg PO BEDTIME Qty: 15 1RF propranolol 20 mg Tablet 20 mg PO TID Qty: 45 1RF Protocol: Hold for SBP/HR < HOLD for SBP < : 90 HOLD for HR < : 60 sertraline 50 mg Tablet 50 mg PO DAILY Qty: 15 1RF Discontinued oxcarbazepine [Trileptal] 150 mg tablet 300 mg PO BEDTIME oxcarbazepine [Trileptal] 150 mg tablet 150 mg PO QAM olanzapine 5 mg tablet 1 tab PO BEDTIME hydroxyzine pamoate 25 mg capsule 50 mg PO BID PRN (Reason: Anxiety) Discharge Orders: Discharge Order (Routine); Ordered 11/28/22 Ordered By: Jeny Rawls Diet: Advance to usual diet Activity on Discharge: As tolerated Stand Alone Forms: Patient Portal Discharge page, Community Support Care Plan Goals: Maintain mood and safe behaviors Take medications as directed Practice coping skills Connect with out patient providers Health Concerns: Stable mood and behaviors Plan of Treatment: Follow up with out patient provider appointments Take medications as directed Call and/or return as needed Assessment: Pt interviewed prior to discharge and found to be fully oriented and without any SI/HI. Pt has insight and demonstrates good judgment in terms of wanting to pursue treatment. Pt is not in imminent risk of harm to self or others and has a safety plan that includes presenting to the closest ER or calling 911 if feeling unsafe. Pt has been observed closely by team throughout admission. Pt has not engaged in any behaviors that suggest dangerousness to self or others and has demonstrated appropriate behaviors and impulse control. Discharge Date/Time: 11/28/22 12:44
== END 2022-11-28 12:44 | disposition home or self-care (01) | DRG 753 ==
LOC: HO.ED 11-22 12:47 → HO.PM5 11-22 14:35
PROVIDERS: Social Worker; Admitting Provider Psychiatry & Neurology Psychiatry; Emergency Provider Emergency Medicine; Visit Provider Clinical Nurse Specialist Psychiatric/Mental Health, Adult
DX: F31.81 Bipolar II disorder (principal); R45.851 Suicidal ideations; F60.3 Borderline personality disorder; F43.10 Post-traumatic stress disorder, unspecified; F17.210 Nicotine dependence, cigarettes, uncomplicated; Z71.6 Tobacco abuse counseling; Z20.822 Contact with and (suspected) exposure to COVID-19; Z79.899 Other long term (current) drug therapy
CPT/HCPCS: 36415; 73110; 80053; 80061; 80307; 81001; 81025; 83036; 84443; 87086; 87635; 99285; S9485

== ENCOUNTER 2022-12-25 10:30 | Outpatient (RCR) | payer OTHER, SELFPAY ==
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
[2022-12-22 11:55] VITALS: BP 124/80; PULSE 71; TEMP 36.7
--- NOTE | 2022-12-26 11:12 | PC.NURSE ---
Patient did not show up to the program this morning. Staff called and left a message. Raisa called back and stated she worked last night and overslept this morning. Plans on returning on and Sunday. [facility] staff aware.
--- NOTE | 2022-12-28 15:35 | HO.PHP ---
The client called out and reported the groups are too overwhelming. I called back and we discussed her needs . She states that she would like to come in tomorrow and see if it feels that she can tolerate the number of people in the group.
--- NOTE | 2022-12-28 15:37 | HO.PHP ---
The clients case was discussed and opened in treatment team.
--- NOTE | 2023-01-02 10:00 | HO.PHP ---
I left a message with the clients therapist Sheyla christensen clients decision to discharge from [facility].
--- NOTE | 2023-01-02 10:09 | HO.PHP ---
I left a message with the clients therapist Danielle Ferrara [facility] re clients discharge
== END 2022-12-25 23:59 | disposition left against medical advice (07) ==
LOC: HO.PHPA 10:30
PROVIDERS: Visit Provider Psychiatry & Neurology Psychiatry
DX: F31.81 Bipolar II disorder (principal); F60.3 Borderline personality disorder; Z79.899 Other long term (current) drug therapy
CPT/HCPCS: 90791; 90853

== ENCOUNTER 2023-07-27 00:13 | Observation (INO) | payer OTHER, SELFPAY ==
[2023-07-27] VITALS (9 sets, daily range): BP systolic 94–130; BP diastolic 55–81; PULSE 63–90; RESP 14–20; TEMP 36.6–37.1; O2SAT 98–100; BMI 20.7; BMI 20.6
--- NOTE | 2023-07-27 | ECG_ITS ---
Test Reason : OVERDOSE Blood Pressure : / mmHG Vent. Rate : 091 BPM Atrial Rate : 091 BPM P-R Int : 142 ms QRS Dur : 080 ms QT Int : 340 ms P-R-T Axes : 082 090 060 degrees QTc Int : 418 ms Normal sinus rhythm Rightward axis Borderline ECG No previous ECGs available Referred By: Generic ED Physician Electronically Signed By:LÓPEZ MELGOZA
--- NOTE | 2023-07-27 01:02 | ED_ITS ---
HPI - Psych General Chief Complaint: Psychiatric Symptoms Stated Complaint: Overdosed on aspirin Time Seen by Provider: 07/27/23 00:47 Source: patient Mode of arrival: EMS Limitations: other (Refusing to answer questions) History of Present Illness HPI Narrative: Patient comes to the emergency room after a suicide attempt. Patient states that she took several handfuls of aspirin. Patient states she approximates took 20 tablets. Patient does not know if they were baby aspirins or 325 mg. Patient states that she took them approximately anywhere between 1 hour to 4 hours ago. Patient keeps changing her story. Patient states she tried to make herself vomit but she did not vomit. Patient complaining of abdominal cramping. Patient refusing to answer if she took any other substances/drugs Related Data Previous Rx's Medication Instructions Recorded hydroxyzine HCl 50 mg tablet 50 mg PO Q4H PRN Anxiety #60 tabs 11/27/22 lithium carbonate 300 mg capsule 300 mg PO BID #30 caps 11/27/22 mirtazapine 15 mg tablet 15 mg PO BEDTIME #15 tabs 11/27/22 olanzapine 10 mg tablet 10 mg PO BEDTIME #15 tabs 11/27/22 olanzapine 10 mg tablet 10 mg PO Q6H PRN agitation #15 tabs 11/27/22 propranolol 20 mg tablet 20 mg PO TID #45 tabs 11/27/22 sertraline 50 mg tablet 50 mg PO DAILY #15 tabs 11/27/22 trazodone 50 mg tablet 50 mg PO BEDTIME PRN Insomnia #15 11/27/22 tabs Allergies Allergy/AdvReac Type Severity Reaction Status Date / Time No Known Allergies Allergy Unverified 07/29/20 18:59 [No Known Allergies*] Review of Systems 2 Review of Systems: Constitutional : No Weight loss, No Fever, No Chills, No Night Sweats, No Fatigue, No Malaise ENT/Mouth : No Hearing loss, No Ear Pain, No Nasal Congestion, No Sinus Pain, No Hoarseness, No sore throat, No Rhinorrhea, No Swallowing Difficulty Eyes: No Eye Pain, No Swelling, No Redness, No Foreign Body, No Discharge, No Vision Changes Cardiovascular : No Chest Pain, No SOB, No Dyspnea on Exertion, No Orthopnea, No Edema, No Palpitations Respiratory : No Cough, No Sputum, No Wheezing, No Smoke Exposure, No Dyspnea Gastrointestinal : Complaining of nausea, no vomiting or diarrhea, complaining of abdominal cramping Genitourinary : no irregular bleeding, No Dysuria, No Urinary Frequency, No Hematuria, No Urinary Incontinence, No Urgency, No Flank Pain, No Urinary Flow Changes, No Hesitancy Musculoskeletal : No joint pain, No Myalgias, No Joint Swelling Skin : No Skin Lesions, No rash Neuro : No Weakness, No Numbness, No Paresthesias, No Loss of Consciousness, No Dizziness, No Headache Psych : No Anxiety/Panic, No Depression, No SI/HI/AH/VH, No Social Issues, Heme/Lymph: No Bruising, No Bleeding,No Lymphadenopathy Endocrine : No Polyuria, No Polydipsia, No Temperature Intolerance [facility] Past Medical History Medical History (Updated 07/27/23 @ 01:24 by Arelis Giang MD) Suicide attempt Borderline personality disorder Bipolar 2 disorder Pectus excavatum Social History Social History Household Members: Other Household Members Other:: God mother Housing: House Do you presently have visiting nurse or other home services: No Alcohol intake: current Alcohol intake frequency: holidays/special occasions only Patient Tobacco Use Status: Current everyday Tobacco user Tobacco use type: Cigarette Smoked in Last 30 Days: No e-Cigarette/Vaping Use: Former Use Second Hand Smoke Exposure: No Use of substances other than those prescribed or required for medical reasons: Yes Substance Use Type: Marijuana Substance Use Frequency: Daily Last Used Substance: Just Prior to Admission Any prior treatment program specific to substance use: No Advance Directives: No Advance Directives Information Provided: Yes Patient : No service: No Sexual orientation: Decline to Answer Physical Exam 2 Vital Signs: Vital Signs: Last Vital Signs Temp 98.3 F 07/27/23 00:58 Pulse 84 07/27/23 00:58 Resp 16 07/27/23 00:58 BP 103/63 07/27/23 00:58 Pulse Ox 100 07/27/23 00:58 O2 Del Method Room Air 07/27/23 00:58 BMI result Body Mass Index 20.7 Const: Other: Appearance: Alert. Oriented X3. No acute distress. Eyes: Pupils equal, round and reactive to light. ENT: Pharynx normal. Neck: Normal inspection. Neck supple. No lymph nodes noted. No crepitus CVS: Normal heart rate and rhythm. Pulses normal. Normal S1 and S2 Respiratory: No respiratory distress. Breath sounds normal. No Wheezing. No rales Abdomen: Soft and nontender. No rigidity. No distention. Skin: Skin warm and dry. Normal skin color. Normal skin turgor. Extremities: No lower extremity edema. No Lacerations. No Rash Neuro: Oriented X 3. No motor deficit. No sensory deficit. Moving all extremities. No slurred speech. CN 2 through 12 grossly intact Psych: calm, flat affect, unwilling to answer some questions Course Course Course Narrative: -patient is on a Section 12 -patient is on a one-to-one -all of patient's labs pending -we contacted poison Control, recommendations: 50 g of activated charcoal and IV fluids - Medications Administered Generic Name Dose Route Start Last Admin Trade Name Freq PRN Reason Stop Dose Admin Sodium Chloride 1,000 mls @ 999 mls/hr 07/27/23 01:03 07/27/23 01:10 Ns IVCONT 07/27/23 02:03 999 mls/hr .Q1H1M ONE Administration Discontinued Medications Generic Name Dose Route Start Last Admin Trade Name Freq PRN Reason Stop Dose Admin Charcoal 50 gm 07/27/23 01:03 07/27/23 01:18 Activated Charcoal 50 Gm/240 Ml Oral.Susp PO 07/27/23 01:04 50 gm ONCE ONE Administration Medical Decision Making Medical Decision Making [facility] Narrative: My interpretation of labs: Normal white blood cell count, normal chemistry, hCG negative, U tox positive for marijuana, negative for alcohol -0 my interpretation of EKG: Normal sinus rhythm, heart rate 91, no ST segment depression or elevation, no T-wave inversion, QTC 418 -salicylate and acetaminophen levels pending -patient remains on a Section 12 and 1-1 -sign-out given to Dr. Rodriguez Differential Diagnosis Differential Diagnoses: The differential diagnosis associated with the presentation includes (Anxiety, depression, suicide attempt, salicylate overdose, acetaminophen overdose) Admission/Observation Consideration of admission/observation: Escalation of care including admission/observation considered (Patient mentioned that she overdosed with aspirin, admission was considered. Solicited levels pending) Lab Data [facility] Lab Attestation statement: I reviewed the patient's lab results. 07/27/23 01:08 07/27/23 01:08 Labs: Lab Results 07/27/23 07/27/23 07/27/23 Range/Units 01:05 01:08 01:13 WBC 7.5 (4.8-10.8) X10*3/uL RBC 3.90 L (4.20-5.50) X10*6/uL Hgb 12.4 (12.0-16.0) g/dl Hct 35.3 L (37.0-47.0) % MCV 90.5 (80.0-98.0) fL MCH 31.8 (27.0-33.0) pg MCHC 35.1 H (31.0-35.0) g/dl RDW 11.8 (11.0-16.0) % Plt Count 243 (160-400) X10*3/uL MPV 8.5 L (9.4-12.3) fL Absolute Nucleated RBC 0.000 (0.0-0.012) X10*3/uL Nucleated RBC % (auto) 0.0 (0.0-0.2) /100WBC VBG pH 7.46 H (7.32-7.43) VBG pCO2 37 mmHg VBG pO2 52 mmHg VBG HCO3 27 H (22-26) mmol/L VBG O2 Saturation 84.0 % VBG Base Excess 3.5 mmol/L Sodium 141 (135-145) mmol/L Potassium 3.9 (3.3-5.1) mmol/L Chloride 107 (96-108) mmol/L Carbon Dioxide 21 L (22-29) mmol/L Anion Gap 17 (12-20) BUN 8 L (9-16) mg/dL Creatinine 0.87 (0.5-1.4) mg/dL Estim Creat Clear Calc 89.8 Estimated GFR > 60 Random Glucose 97 (60-115) mg/dL Calcium 9.8 D (8.4-10.2) mg/dL Total Bilirubin 0.1 (0.0-1.0) mg/dL Direct Bilirubin < 0.2 (0.0-0.5) mg/dL AST 20 (5-31) U/L ALT 12 (0-31) U/L Alkaline Phosphatase 38 L (39-117) U/L Total Protein 7.7 (6.5-8.0) g/dL Albumin 4.4 (3.5-5.0) g/dL Beta HCG, Quant < 2 mIU/mL Urine Color Yellow Urine Appearance Clear Urine pH 6.0 (5.0-9.0) Ur Specific [place] <= 1.005 (1.005-1.025) Urine Protein Negative (Neg-Trace) mg/dL Urine Glucose (UA) Negative (Negative) mg/dL Urine Ketones Negative (Negative) mg/dL Urine Blood Trace H (Negative) Urine Nitrite Negative (Negative) Ur Leukocyte Esterase Negative (Negative) Urine RBC 0-2 (0-2) /HPF Urine WBC 0-5 (0-5) /HPF Ur Squamous Epith Cells 0-2 (0-2) /HPF Urine Bacteria None Seen (None Seen) Hyaline Casts 0-2 (0-2) /LPF Urine Opiates Screen Not Detected (Not Detect) Urine Fentanyl Screen Not Detected (Not Detect) Ur Barbiturates Screen Not Detected (Not Detect) Ur Phencyclidine Scrn Not Detected (Not Detect) Ur Amphetamines Screen Not Detected (Not Detect) U Benzodiazepines Scrn Not Detected (Not Detect) Urine Cocaine Screen Not Detected (Not Detect) U Marijuana (THC) Screen POSITIVE H (Not Detect) Ethyl Alcohol < 10 mg/dL COVID-19 (PHYLLIS) Negative (Negative) COVID-19 Clin Com See Note Independent Interpretation I performed an independent interpretation of an: EKG Critical Care Time Critical Care Time Critical Care Time: Yes Total Critical Care Time: 75 Attestation: I have personally provided critical care time. Time includes review of lab data, radiology results, discussion with consultants, and monitoring for potential decompensation. Intervention performed as documented. Discharge Plan Discharge Clinical Impression: Overdose of salicylate, Suicide attempt Patient Disposition: Still a Patient Prescriptions: No Action trazodone 50 mg Tablet 50 mg PO BEDTIME PRN (Reason: Insomnia) Qty: 15 1RF olanzapine 10 mg Tablet 10 mg PO BEDTIME Qty: 15 1RF olanzapine 10 mg Tablet 10 mg PO Q6H PRN (Reason: agitation) Qty: 15 1RF hydroxyzine HCl 50 mg Tablet 50 mg PO Q4H PRN (Reason: Anxiety) Qty: 60 1RF lithium carbonate 300 mg Capsule 300 mg PO BID Qty: 30 1RF mirtazapine 15 mg Tablet 15 mg PO BEDTIME Qty: 15 1RF propranolol 20 mg Tablet 20 mg PO TID Qty: 45 1RF Protocol: Hold for SBP/HR < HOLD for SBP < : 90 HOLD for HR < : 60 sertraline 50 mg Tablet 50 mg PO DAILY Qty: 15 1RF Interventions: [place]-Suicide Risk Severity Scale Last Done: 07/27/23 00:49
[2023-07-27] MEDS: 0.9 % Sodium Chloride 1,000 ML 999 ML IVCONT (01:10)
[2023-07-27 01:12] LABS: Appearance Urine Clear; Color Urine Yellow; Glucose Urine UA Negative (Negative); Leukocyte Esterase Urine Negative (Negative); Nitrite Urine Negative (Negative); Specific Gravity - Urine <= 1.005 (1.005-1.025); UMIC TRIGGER UACC YES; Urine Blood Trace (Negative); Urine Ketones Negative (Negative); Urine Protein Negative (Neg-Trace)
[2023-07-27 01:13] LABS: Hematocrit 35.3 % (37.0-47.0); Hemoglobin 12.4 g/dl (12.0-16.0); Mean Corpuscular HGB Conc 35.1 g/dl (31.0-35.0); Mean Corpuscular Hemoglobin 31.8 pg (27.0-33.0); Mean Corpuscular Volume 90.5 fL (80.0-98.0); Mean Platelet Volume 8.5 fL (9.4-12.3); Platelet Count 243 X10*3/uL (160-400); Red Cell Distribution Width 11.8 % (11.0-16.0); White Blood Count 7.5 X10*3/uL (4.8-10.8)
[2023-07-27 01:14] LABS: Bacteria Urine None Seen (None Seen); Hyaline Casts Urine 0-2 /LPF (0-2); RBC Urine 0-2 /HPF (0-2); Squamous Epithelial Cell Urine 0-2 /HPF (0-2); WBC Urine 0-5 /HPF (0-5)
[2023-07-27] MEDS: Activated charcoaL 50 GM/240 ML ORAL.SUSP PO (01:18)
[2023-07-27 01:19] LABS: VBG Base Excess 3.5 mmol/L; VBG HCO3 27 mmol/L (22-26); VBG pCO2 37 mmHg; VBG pH 7.46 (7.32-7.43); VBG pO2 52 mmHg
[2023-07-27 01:19] LABS: Venous Blood Gas Refer to POC result
[2023-07-27 01:33] LABS: COVID-19 Test Negative (Negative); IDNOW Serial# 6674DD1D
[2023-07-27 01:33] LABS: Ethanol < 10 mg/dL
[2023-07-27 01:39] LABS: Amphetamine Screen Urine Not Detected (Not Detect); Barbiturates, Urine Not Detected (Not Detect); Benzodiazepines Screen Urine Not Detected (Not Detect); Cannabinoid Screen Urine POSITIVE (Not Detect); Cocaine Screen Urine Not Detected (Not Detect); Fentanyl, urine Not Detected (Not Detect); Opiate Screen Urine Not Detected (Not Detect); Phencyclidine Screen Urine Not Detected (Not Detect)
[2023-07-27 01:43] LABS: Alanine Aminotransferase 12 U/L (0-31); Albumin Level 4.4 g/dL (3.5-5.0); Alkaline Phosphatase 38 U/L (39-117); Anion Gap 17 (12-20); Aspartate Amino Transferase 20 U/L (5-31); Bilirubin Direct < 0.2 mg/dL (0.0-0.5); Bilirubin Total 0.1 mg/dL (0.0-1.0); Blood Urea Nitrogen 8 mg/dL (9-16); Calcium 9.8 mg/dL (8.4-10.2); Carbon Dioxide 21 mmol/L (22-29); Chloride 107 mmol/L (96-108); Creatinine Clr Calc Pharmacy 89.8; Estimated Glomerular Filt Rate > 60; Glucose Random 97 mg/dL (60-115); HCG Quantitative < 2 mIU/mL; Potassium 3.9 mmol/L (3.3-5.1); Sodium 141 mmol/L (135-145); Total Protein 7.7 g/dL (6.5-8.0)
--- NOTE | 2023-07-27 01:47 | PC.NURSE ---
Patient changed over into hospital gown, belongings secured in pod closet. Pt endorses SI with plan to OD. Pt is calm and cooperative at this time, respirations even and unlabored, skin pwd, alert and oriented x4. Pt has flat affect and offers no complaints to this RN at this time. 20g iv placed in LFA, IV fluids started. Pt has charcoal drink and is occasionally sipping on it
[2023-07-27 02:06] LABS: Acetaminophen LAB < 17 mcg/mL (<30); Salicylate 45.5 mg/dL (15-30)
[2023-07-27] MEDS: Sodium Bicarbonate 8.4% 50 MEQ/50 ML SYRINGE IVPUSH (02:36)
[2023-07-27] MEDS: Sodium Bicarbonate 8.4% 150 MEQ in Dextrose 5 % 850 ML 100 MEQ IV ×2 (02:57→13:00)
--- NOTE | 2023-07-27 03:15 | PC.NURSE ---
this RN spoke with poison control regarding patient's case once again. the following orders were recommended: -start bicarb for elevated ASA -1amp bicarb loading dose -3 amps bicarb in 1L D5W at 150mls/hr -start NAC protocol for acetaminophen -labs q2h -VBG -chem 7 -ASA -Tylenol When ASA level is less than 30, pause the bicarb drip and retake ASA in 2 hours. restart if ASA increases Med-Surg Admit no need to repeat EKGs MD Rodriguez requesting to hold off on NAC protocol and retake acetaminophen at 5am to see if it decreases on its own
--- NOTE | 2023-07-27 04:21 | PC.NURSE ---
Took over care from FENG Hogan at 3:00am, no sign of distress, pt sleeping, labs ordered per position control, no sign of distress. Will continue to monitor.
--- NOTE | 2023-07-27 04:39 | PC.NURSE ---
pt assisted oob to void, finished change management consultant that was complete by security. placed remaining items with her belonging in the closet in the POD. Will continue to monitor.
--- NOTE | 2023-07-27 04:46 | PC.NURSE ---
yellow gold necklace and pants.
[2023-07-27 05:13] LABS: Venous Blood Gas Refer to POC result
[2023-07-27 05:13] LABS: VBG Base Excess 18.1 mmol/L; VBG HCO3 44 mmol/L (22-26); VBG pCO2 58 mmHg; VBG pH 7.48 (7.32-7.43); VBG pO2 36 mmHg
[2023-07-27] MEDS: Ondansetron ODT 4 MG TAB.RAPDIS TRANSLINGU (05:30)
--- NOTE | 2023-07-27 05:33 | PC.NURSE ---
Medicated per Mar for nausea
[2023-07-27 05:34] LABS: Alanine Aminotransferase 9 U/L (0-31); Albumin Level 3.4 g/dL (3.5-5.0); Alkaline Phosphatase 31 U/L (39-117); Anion Gap 13 (12-20); Aspartate Amino Transferase 13 U/L (5-31); Bilirubin Direct < 0.2 mg/dL (0.0-0.5); Bilirubin Total 0.1 mg/dL (0.0-1.0); Blood Urea Nitrogen 7 mg/dL (9-16); Calcium 7.9 mg/dL (8.4-10.2); Carbon Dioxide 33 mmol/L (22-29); Chloride 101 mmol/L (96-108); Estimated Glomerular Filt Rate > 60; Glucose Random 405 mg/dL (60-115); Sodium 144 mmol/L (135-145); Total Protein 5.8 g/dL (6.5-8.0)
[2023-07-27 05:36] LABS: Acetaminophen LAB < 17 mcg/mL (<30); Salicylate 45.1 mg/dL (15-30)
--- NOTE | 2023-07-27 06:17 | PC.NURSE ---
provider into assess pt, pt refusing to drink charcoal, was able to drink about 6ounce provider aware. pt complaining of feeling like she losing hearing right. Provider aware.
--- NOTE | 2023-07-27 07:02 | PC.NURSE ---
provider aware of elevated poc, not action at this time, will continue to monitor.
--- NOTE | 2023-07-27 07:58 | PC.NURSE ---
Alert and oriented, calm and cooperative, provided with phone to call friend, nsr on monitor, breakfast tray ordered.
[2023-07-27 08:06] LABS: Venous Blood Gas Refer to POC result
[2023-07-27 08:07] LABS: VBG Base Excess 4.5 mmol/L; VBG HCO3 27 mmol/L (22-26); VBG pCO2 36 mmHg; VBG pH 7.48 (7.32-7.43); VBG pO2 98 mmHg
[2023-07-27 08:28] LABS: Blood Urea Nitrogen 6 mg/dL (9-16); Calcium 8.6 mg/dL (8.4-10.2); Carbon Dioxide 25 mmol/L (22-29); Chloride 109 mmol/L (96-108); Creatinine Clr Calc Pharmacy 95.3; Estimated Glomerular Filt Rate > 60; Glucose Random 94 mg/dL (60-115); Potassium 3.3 mmol/L (3.3-5.1); Sodium 145 mmol/L (135-145)
--- NOTE | 2023-07-27 09:24 | PC.NURSE ---
Patient denies SI/HI at this time. Declined x 2 attempts to draw labs at this time. States labs can be drawn in a little. Educated on importance of drawing lab.
[2023-07-27 10:47] LABS: Anion Gap 16 (12-20)
--- NOTE | 2023-07-27 10:47 | PC.NURSE ---
Spoke with poison control. recommend repeat vbg, mg level, and to replace K to greater than 4.
[2023-07-27 11:14] LABS: Salicylate 48.1 mg/dL (15-30)
--- NOTE | 2023-07-27 11:18 | PC.NURSE ---
Provider aware of posion controll recs, bmp, asa, to be re drawn q 2 hours
--- NOTE | 2023-07-27 11:37 | PC.NURSE ---
Patient aware of increased asa level. Educated on importance of drinking charcoal, patient stating she is willing to try again. Provider aware.
--- NOTE | 2023-07-27 12:00 | PC.NURSE ---
Patient drank aprox 1/2 of activated charcoal after much encouragement. Continues to denies SI, however affect flat. Continues to report diminished hearing in right ear. Patient requesting for nurse to call [facility] to let them know she remains in the hospital so they are not worried that she missed todays appointment. x 2 attempts to reach n crisis unsuccessful at this time
[2023-07-27 12:20] LABS: VBG Base Excess 2.7 mmol/L; VBG HCO3 25 mmol/L (22-26); VBG pCO2 32 mmHg; VBG pH 7.49 (7.32-7.43); VBG pO2 79 mmHg
[2023-07-27 12:22] LABS: Venous Blood Gas Refer to POC result
[2023-07-27 12:32] LABS: Anion Gap 13 (12-20); Blood Urea Nitrogen 6 mg/dL (9-16); Calcium 8.3 mg/dL (8.4-10.2); Carbon Dioxide 25 mmol/L (22-29); Chloride 106 mmol/L (96-108); Estimated Glomerular Filt Rate > 60; Glucose Random 115 mg/dL (60-115); Magnesium 1.9 mg/dL (1.6-2.6); Sodium 141 mmol/L (135-145)
[2023-07-27 12:33] LABS: Salicylate 40.4 mg/dL (15-30)
--- NOTE | 2023-07-27 12:33 | PC.NURSE ---
Poison control updated, will call back in 4 hours for update
--- NOTE | 2023-07-27 14:02 | W.PM.CCCN ---
History of Present Illness Data of Consult Service Date: 07/27/23 Requesting physician: Zeeshan Samuels Primary Care Provider: Unknown Physician HPI Reason for consult: Attempted salicylate overdose 27-year-old female with bipolar disorder and major depression on lithium and olanzapine and mirtazapine and trazodone and sertraline now in the hospital for between 12 and 13 hours but never displayed any signs of toxicity always awake and alert oriented no signs of SIRS no respiratory alkalosis no anion gap certainly no metabolic acidosis did have a modestly elevated salicylate level for some time and has been on a appropriate the bicarb drip except we do not know what we accomplished in terms of urinary pH at least empirically on an appropriate drip and metabolically stable over the last 13 hours Review of Systems Review of Systems: Yes all other systems are reviewed and are negative [facility] Past Medical History Medical History (Updated 07/27/23 @ 14:09 by Sherie Camarillo MD) Suicide attempt Borderline personality disorder Bipolar 2 disorder Pectus excavatum Social History Social History Household Members: Other Household Members Other:: God mother Housing: House Do you presently have visiting nurse or other home services: No Alcohol intake: current Alcohol intake frequency: holidays/special occasions only Patient Tobacco Use Status: Current everyday Tobacco user Tobacco use type: Cigarette Smoked in Last 30 Days: No e-Cigarette/Vaping Use: Former Use Second Hand Smoke Exposure: No Use of substances other than those prescribed or required for medical reasons: Yes Substance Use Type: Marijuana Substance Use Frequency: Daily Last Used Substance: Just Prior to Admission Any prior treatment program specific to substance use: No Advance Directives: No Advance Directives Information Provided: Yes Patient : No service: No Sexual orientation: Decline to Answer Meds Allergies Allergy/AdvReac Type Severity Reaction Status Date / Time No Known Allergies Allergy Unverified 07/29/20 18:59 [No Known Allergies*] Active Medications: Current Medications Sodium Bicarbonate 150 meq/ (Dextrose) 1,000 mls @ 100 mls/hr IV .Q10H EMIR Last Admin: 07/27/23 13:00 Dose: 100 mls/hr Potassium Chloride (Potassium Chloride/H20) 10 meq in 100 mls @ 100 mls/hr IV Q1H EMIR Stop: 07/27/23 17:59 Metoclopramide HCl (Metoclopramide Hcl 10 Mg/2 Ml Vial) 10 mg IVPUSH Q6H PRN PRN Reason: Nausea, vomiting Physical Exam Vital Signs: Vital Signs: Last Vital Signs Temp 98.8 F 07/27/23 10:48 Pulse 67 07/27/23 10:48 Resp 15 07/27/23 10:48 BP 109/56 L 07/27/23 10:48 Pulse Ox 100 07/27/23 10:48 O2 Del Method Room Air 07/27/23 10:48 BMI result Body Mass Index 20.7 Vital signs have been stable no evidence of hyper circulatory status Skin is intact No neck vein distension and has good bilateral carotid upstrokes good peripheral pulses Bedside echo with normal anatomy not hyperdynamic Abdomen soft with no organomegaly Chest is clear no adventitious sounds but no chest x-ray done Results Labs 07/27/23 01:08 07/27/23 12:07 Labs: Short CBC 07/27/23 Range/Units 01:08 WBC 7.5 (4.8-10.8) X10*3/uL Hgb 12.4 (12.0-16.0) g/dl Hct 35.3 L (37.0-47.0) % Plt Count 243 (160-400) X10*3/uL BMP 07/27/23 07/27/23 07/27/23 01:08 05:06 10:06 Sodium 141 144 145 Potassium 3.9 3.0 L D 3.3 Chloride 107 101 109 H Carbon Dioxide 21 L 33 H 25 BUN 8 L 7 L 6 L Creatinine 0.87 0.84 0.82 Calcium 9.8 D 7.9 L D 8.6 D 07/27/23 12:07 Sodium 141 Potassium 3.0 L Chloride 106 Carbon Dioxide 25 BUN 6 L Creatinine 0.84 Calcium 8.3 L Liver Function 07/27/23 07/27/23 Range/Units 01:08 05:06 Total Bilirubin 0.1 0.1 (0.0-1.0) mg/dL Direct Bilirubin < 0.2 < 0.2 (0.0-0.5) mg/dL AST 20 13 (5-31) U/L ALT 12 9 (0-31) U/L Alkaline Phosphatase 38 L 31 L (39-117) U/L Albumin 4.4 3.4 L (3.5-5.0) g/dL Urine 07/27/23 Range/Units 01:05 Urine Color Yellow Urine Appearance Clear Urine pH 6.0 (5.0-9.0) Ur Specific [place] <= 1.005 (1.005-1.025) Urine Protein Negative (Neg-Trace) mg/dL Urine Glucose (UA) Negative (Negative) mg/dL Assessment and Plan (1) Suicide attempt: Status: Acute (2) Overdose of salicylate: Status: Acute (3) Suicide attempt: Status: Acute (4) Borderline personality disorder: Status: Acute (5) Bipolar 2 disorder: Status: Acute (6) Hypokalemia: Status: Acute Plan At this point we have in no apparent significant salicylate toxicity and certainly no signs of any organ damage she is well of it now 13 hours since being in the emergency room and only had a modestly elevated or supratherapeutic level of salicylate to begin with and I feel that besides just the oral potassium replacement we can probably change to bicarb drip to Ringer's lactate for maintenance and just observe her medically over the overnight for transfer to behavioral health but no need at this point for intensive care Time Spent With Patient Time: Total time managing care of this patient today 45____ minutes.
[2023-07-27] MEDS: Potassium Chloride Packet 20 MEQ PACKET 40 MEQ PO (14:21)
[2023-07-27] MEDS: Potassium Chloride/H20 10 MEQ/100 ML PIGGYBACK 100 MEQ IV ×2 (14:22→16:37)
--- NOTE | 2023-07-27 14:36 | PC.NURSE ---
Patient reports feeling much better. Sitting up in bed eating lunch and drinking fluids. K running per order
[2023-07-27 14:42] LABS: Anion Gap 12 (12-20); Blood Urea Nitrogen 5 mg/dL (9-16); Calcium 8.6 mg/dL (8.4-10.2); Carbon Dioxide 26 mmol/L (22-29); Chloride 106 mmol/L (96-108); Creatinine Clr Calc Pharmacy 94.1; Estimated Glomerular Filt Rate > 60; Glucose Random 89 mg/dL (60-115); Sodium 141 mmol/L (135-145)
[2023-07-27 14:47] LABS: Salicylate 36.1 mg/dL (15-30)
--- NOTE | 2023-07-27 14:55 | P.HPHOSP_ITS ---
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 Patient states that she got into an argument with her godmother, got angry, told her she would try to kill yourself, and then proceeded to swallow handfuls of aspirin pills. Patient unsure of how many pills she took, but estimates it must been over 50 pills. Patient denies premeditation for SI attempt, says she did on ?impulse?: It was not a thought until it was a thought . Patient then left the house and walk around and visited a friend. Friend and patient were unsuccessful at attempting to induce vomiting, so patient's friend was able to convince her to come to the ED for evaluation. Patient states that she has had 2 previous SI attempts, both with overdosing on aspirin though this time she reports taking much more than before. Patient states she has been experiencing mild symptoms: Complains of feeling congested, muffled hearing in right ear, and her stomach feeling ?weird?. Previously had some nausea, though this was after ingesting activated charcoal. Nausea has been intermittent. Also has experienced some dizziness with walking. Denies chest pain/pressure, palpitations. Denies diaphoresis. No shortness of breath. Patient was initially placed on a bicarb drip and ICU consulted, who said patient did not meet ICU level of care and could be admitted to the hospital floor since she was without sirs criteria, no respiratory alkalosis, no anion gap, and no metabolic acidosis. In the ED patient was afebrile with occasionally soft BP as low as 92/55. Labs were significant for potassium is low as 3.0, BUN as low as 5, AST 32, alk-phos 38. Salicylate levels as high as 48.1, now down trending with latest reading 36.1. UA negative for UTI. EKG demonstrated a normal sinus rhythm without evidence of ST elevations or depressions. Pt was treated with IVF, activated charcoal, sodium bicarb, ondansetron, and potassium chloride IV and p.o.. Pt will be admitted to the hospital under observation on telemetry for treatment and further evaluation of intentional aspirin overdose. <ORVILLE Bowen - Last Filed: 07/27/23 17:11> Review of Systems 2 Review of Systems: Aspirin overdose Nausea Abdominal discomfort lightheadedness Muffled hearing in right ear Denies chest pain/pressure No SOB <ORVILLE Bowen - Last Filed: 07/27/23 17:11> [facility] Medical History: Medical History Suicide attempt Borderline personality disorder Bipolar 2 disorder Pectus excavatum <ORVILLE Bowen - Last Filed: 07/27/23 17:11> Social History: Social History Household Members: Other Household Members Other:: God mother Housing: House Do you presently have visiting nurse or other home services: No Alcohol intake: current Alcohol intake frequency: holidays/special occasions only Patient Tobacco Use Status: Current everyday Tobacco user Tobacco use type: Cigarette Smoked in Last 30 Days: No e-Cigarette/Vaping Use: Former Use Second Hand Smoke Exposure: No Use of substances other than those prescribed or required for medical reasons: Yes Substance Use Type: Marijuana Substance Use Frequency: Daily Last Used Substance: Just Prior to Admission Any prior treatment program specific to substance use: No Advance Directives: No Advance Directives Information Provided: Yes Patient : No service: No Sexual orientation: Decline to Answer <ORVILLE Bowen - Last Filed: 07/27/23 17:11> Meds Allergies/Adverse reactions: Allergies Allergy/AdvReac Type Severity Reaction Status Date / Time No Known Allergies Allergy Unverified 07/29/20 18:59 [No Known Allergies*] <ORVILLE Bowen - Last Filed: 07/27/23 17:11> Active Medications: Current Medications Sodium Bicarbonate 150 meq/ (Dextrose) 1,000 mls @ 100 mls/hr IV .Q10H EMIR Last Admin: 07/27/23 13:00 Dose: 100 mls/hr Potassium Chloride (Potassium Chloride/H20) 10 meq in 100 mls @ 100 mls/hr IV Q1H EMIR Stop: 07/27/23 17:59 Last Admin: 07/27/23 14:22 Dose: 100 mls/hr Metoclopramide HCl (Metoclopramide Hcl 10 Mg/2 Ml Vial) 10 mg IVPUSH Q6H PRN PRN Reason: Nausea, vomiting <ORVILLE Bowen - Last Filed: 07/27/23 17:11> Physical Exam 2 Vital Signs and Narrative: Vital Signs: Last Vital Signs Temp 98.8 F 07/27/23 10:48 Pulse 67 07/27/23 10:48 Resp 15 07/27/23 10:48 BP 109/56 L 07/27/23 10:48 Pulse Ox 100 07/27/23 10:48 O2 Del Method Room Air 07/27/23 10:48 BMI result Body Mass Index 20.7 <ORVILLE Bowen Last Filed: 07/27/23 17:11> Constitutional: Alert, in no acute distress. Mental Status: Oriented to person, place and time. Eyes: Pupils are equal, round, and reactive to light. Ear, Nose, and Throat: Oropharynx clear, mucous membranes moist. Ears and nose without deformities. Trachea midline. Respiratory: Clear to auscultation bilaterally. No wheezing, rales, or rhonchi. Cardiovascular: S1, S2 regular. No murmurs, rubs, or gallops. Gastrointestinal: Abdomen soft, non-tender, non-distended. Normal bowel sounds. Neurologic: Cranial nerves II-XII are grossly intact bilaterally. No focal neurological deficits. Moves all extremities spontaneously. Skin: No rashes or lesions noted. Musculoskeletal: No cyanosis or clubbing. Extremities: No edema. Psychiatric: Normal mood and affect. <ORVILLE Bowen - Last Filed: 07/27/23 17:11> Results Labs CBC and Chem 7: 07/27/23 01:08 07/27/23 14:18 <ORVILLE Bowen - Last Filed: 07/27/23 17:11> Labs: Laboratory Results - last 24 hr 07/27/23 07/27/23 07/27/23 01:05 01:08 01:13 MCV 90.5 MCH 31.8 MCHC 35.1 H RDW 11.8 Plt Count 243 MPV 8.5 L Absolute Nucleated RBC 0.000 Nucleated RBC % (auto) 0.0 VBG pH 7.46 H VBG pCO2 37 VBG pO2 52 VBG HCO3 27 H VBG O2 Saturation 84.0 VBG Base Excess 3.5 Anion Gap 17 Estim Creat Clear Calc 89.8 Estimated GFR > 60 Random Glucose 97 Calcium 9.8 D Magnesium Total Bilirubin 0.1 Direct Bilirubin < 0.2 AST 20 ALT 12 Alkaline Phosphatase 38 L Total Protein 7.7 Albumin 4.4 Beta HCG, Quant < 2 Urine Color Yellow Urine Appearance Clear Urine pH 6.0 Ur Specific [place] <= 1.005 Urine Protein Negative Urine Glucose (UA) Negative Urine Ketones Negative Urine Blood Trace H Urine Nitrite Negative Ur Leukocyte Esterase Negative Urine RBC 0-2 Urine WBC 0-5 Ur Squamous Epith Cells 0-2 Urine Bacteria None Seen Hyaline Casts 0-2 Salicylates 45.5 H* Urine Opiates Screen Not Detected Urine Fentanyl Screen Not Detected Acetaminophen < 17 Ur Barbiturates Screen Not Detected Ur Phencyclidine Scrn Not Detected Ur Amphetamines Screen Not Detected U Benzodiazepines Scrn Not Detected Urine Cocaine Screen Not Detected U Marijuana (THC) Screen POSITIVE H Ethyl Alcohol < 10 COVID-19 (PHYLLIS) Negative COVID-19 Clin Com See Note 07/27/23 07/27/23 07/27/23 05:06 05:08 07:52 MCV MCH MCHC RDW Plt Count MPV Absolute Nucleated RBC Nucleated RBC % (auto) VBG pH 7.48 H 7.48 H VBG pCO2 58 36 VBG pO2 36 98 VBG HCO3 44 H 27 H VBG O2 Saturation 57.0 99.0 VBG Base Excess 18.1 4.5 Anion Gap 13 Estim Creat Clear Calc 93.0 Estimated GFR > 60 Random Glucose 405 H* Calcium 7.9 L D Magnesium Total Bilirubin 0.1 Direct Bilirubin < 0.2 AST 13 ALT 9 Alkaline Phosphatase 31 L Total Protein 5.8 L Albumin 3.4 L Beta HCG, Quant Urine Color Urine Appearance Urine pH Ur Specific [place] Urine Protein Urine Glucose (UA) Urine Ketones Urine Blood Urine Nitrite Ur Leukocyte Esterase Urine RBC Urine WBC Ur Squamous Epith Cells Urine Bacteria Hyaline Casts Salicylates 45.1 H* Urine Opiates Screen Urine Fentanyl Screen Acetaminophen < 17 Ur Barbiturates Screen Ur Phencyclidine Scrn Ur Amphetamines Screen U Benzodiazepines Scrn Urine Cocaine Screen U Marijuana (THC) Screen Ethyl Alcohol COVID-19 (PHYLLIS) COVID-19 [employer] Com 07/27/23 07/27/23 07/27/23 10:06 12:07 12:15 MCV MCH MCHC RDW Plt Count MPV Absolute Nucleated RBC Nucleated RBC % (auto) VBG pH 7.49 H VBG pCO2 32 VBG pO2 79 VBG HCO3 25 VBG O2 Saturation 97.0 VBG Base Excess 2.7 Anion Gap 16 13 Estim Creat Clear Calc 95.3 93.0 Estimated GFR > 60 > 60 Random Glucose 94 115 Calcium 8.6 D 8.3 L Magnesium 1.9 Total Bilirubin Direct Bilirubin AST ALT Alkaline Phosphatase Total Protein Albumin Beta HCG, Quant Urine Color Urine Appearance Urine pH Ur Specific [place] Urine Protein Urine Glucose (UA) Urine Ketones Urine Blood Urine Nitrite Ur Leukocyte Esterase Urine RBC Urine WBC Ur Squamous Epith Cells Urine Bacteria Hyaline Casts Salicylates 48.1 H* 40.4 H* Urine Opiates Screen Urine Fentanyl Screen Acetaminophen Ur Barbiturates Screen Ur Phencyclidine Scrn Ur Amphetamines Screen U Benzodiazepines Scrn Urine Cocaine Screen U Marijuana (THC) Screen Ethyl Alcohol COVID-19 (PHYLLIS) COVID-19 [employer] Com 07/27/23 07/27/23 14:18 14:18 MCV MCH MCHC RDW Plt Count MPV Absolute Nucleated RBC Nucleated RBC % (auto) VBG pH VBG pCO2 VBG pO2 VBG HCO3 VBG O2 Saturation VBG Base Excess Anion Gap 12 Estim Creat Clear Calc 94.1 Estimated GFR > 60 Random Glucose 89 Calcium 8.6 Magnesium Total Bilirubin Direct Bilirubin AST ALT Alkaline Phosphatase Total Protein Albumin Beta HCG, Quant Urine Color Urine Appearance Urine pH Ur Specific [place] Urine Protein Urine Glucose (UA) Urine Ketones Urine Blood Urine Nitrite Ur Leukocyte Esterase Urine RBC Urine WBC Ur Squamous Epith Cells Urine Bacteria Hyaline Casts Salicylates 36.1 H* Cancelled Urine Opiates Screen Urine Fentanyl Screen Acetaminophen Ur Barbiturates Screen Ur Phencyclidine Scrn Ur Amphetamines Screen U Benzodiazepines Scrn Urine Cocaine Screen U Marijuana (THC) Screen Ethyl Alcohol COVID-19 (PHYLLIS) COVID-19 [employer] Com <ORVILLE Bowen - Last Filed: 07/27/23 17:11> Assessment and Plan (1) Hypokalemia: Status: Acute <ORVILLE Bowen - Last Filed: 07/27/23 17:11> (2) Overdose of salicylate: Status: Acute <ORVILLE Bowen - Last Filed: 07/27/23 17:11> (3) Suicide attempt: Status: Acute <ORVILLE Bowen - Last Filed: 07/27/23 17:11> Pt is a 27-year-old female with a PMH significant for migraines, 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 Patient states that she got into an argument with her godmother, got angry, told her she would try to kill yourself, and then proceeded to swallow handfuls of aspirin pills. Pt will be admitted to the hospital under observation on telemetry for treatment and further evaluation of intentional aspirin overdose. Salicylate overdose SI attempt by overdosing on 50+ aspirin pills Initial salicylate level 45.5, patient largely asymptomatic: no sign of salicylate toxicity or end organ damage Poison control recommended VBG q.2 hours to keep pH between 7.45 and 7.55 Poison control recommended BMP q.2-4 hours to follow BUN, creatinine, and watch for hypokalemia Poison control recommended salicylate levels q.2-4 hours until levels drop below 30 for 2 values Patient was placed on bicarb drip in the ED, eventually replaced with lactated Ringer's One-to-one sitter Care team consult Monitor on telemetry Hypokalemia Initial potassium 3.9 with repeat 3.0 Patient received potassium 10 mEq IV q 1hr x4 doses Pt cannot tolerate p.o. potassium; prefers IV Follow BMP Borderline personality disorder Continue home meds Full Code Attending:?Dr. Lagos DVT Prophylaxis: Lovenox Patient be admitted to the hospital under observation telemetry treatment further evaluation of intentional aspirin overdose with close monitoring and care team consult. 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 Patient states that she got into an argument with her godmother, got angry, told her she would try to kill yourself, and then proceeded to swallow handfuls of aspirin pills. Pt will be admitted to the hospital under observation on telemetry for treatment and further evaluation of intentional aspirin overdose. Salicylate overdose SI attempt by overdosing on 50+ aspirin pills Initial salicylate level 45.5, patient largely asymptomatic: no sign of salicylate toxicity or end organ damage Poison control recommended VBG q.2 hours to keep pH between 7.45 and 7.55 Poison control recommended BMP q.2-4 hours to follow BUN, creatinine, and watch for hypokalemia Poison control recommended salicylate levels q.2-4 hours until levels drop below 30 for 2 values Patient was placed on bicarb drip in the ED, eventually replaced with lactated Ringer's One-to-one sitter Care team consult Monitor on telemetry Hypokalemia Initial potassium 3.9 with repeat 3.0 Patient received potassium 10 mEq IV q 1hr x4 doses Pt cannot tolerate p.o. potassium; prefers IV Follow BMP Borderline personality disorder Continue home meds Full Code Attending:?Dr. Lagos DVT Prophylaxis: Lovenox Patient be admitted to the hospital under observation telemetry treatment further evaluation of intentional aspirin overdose with close monitoring and care team consult. Addendum to history and physical by the advanced practice provider, Elizabeth Burris I interviewed and examined the patient. I discussed their presentation and management with the SUKHDEEP. I reviewed the history and physical and agree with the documentation, with the following additions and corrections: 27yo F with BPD presenting after intentional ASA overdose in suicidal attempt, estimated >50 pills of ASA Mild respiratory alkalosis, no metabolic acidosis Got charcoal in ED then started on bicarbonate drip. Poison control involved. Now on LR. Continue to check salicylate level q2h until <30 x2. Replete KStan 1:1 sitter, then Care Team for IPLOC evaluation <Naye Lagos MD - Last Filed: 07/27/23 17:20> Time Spent With Patient Time: Total time managing care of this patient today ____ minutes. <ORVILLE Bowen - Last Filed: 07/27/23 17:11> Quality Stroke Does the patient have a stroke diagnosis?: No <ORVILLE Bowen - Last Filed: 07/27/23 17:11> VTE Prior VTE?: No <ORVILLE Bowen - Last Filed: 07/27/23 17:11> VTE Risk Level:: Medical - moderate - high <ORVILLE Bowen - Last Filed: 07/27/23 17:11> VTE Device Contraindication: Treatment Not Indicated <ORVILLE Bowen - Last Filed: 07/27/23 17:11> VTE Drug Contraindication: N/A - Med Ordered <ORVILLE Bowen - Last Filed: 07/27/23 17:11>
[2023-07-27 14:58] LABS: VBG Base Excess 6.1 mmol/L; VBG HCO3 29 mmol/L (22-26); VBG pCO2 37 mmHg; VBG pH 7.49 (7.32-7.43); VBG pO2 59 mmHg
[2023-07-27 14:59] LABS: Venous Blood Gas Refer to POC result
[2023-07-27 15:02] LABS: TSH reflex Free T4 0.42 uIU/mL (0.32-4.0)
--- NOTE | 2023-07-27 15:11 | PC.NURSE ---
Poison control updated on current labs/ condition
[2023-07-27 15:15] LABS: Lithium < 0.10 mmol/L (0.60-1.20)
[2023-07-27 16:26] LABS: Salicylate 28.3 mg/dL (15-30)
--- NOTE | 2023-07-27 17:10 | MHC.CARE ---
Pt medically admitted, will need to be re-referred to CARE team once fully medically cleared.
[2023-07-27] MEDS: Lactated Ringers 1,000 ML 100 ML IVCONT (17:15)
--- NOTE | 2023-07-27 17:20 | P.DS_ITS ---
DS: Providers Provider Date of Service: 07/28/23 Date of discharge: 07/28/23 Primary care physician: Unknown Physician Consults: 07/27/23 16:17 Consult to Care Team Routine Comment: Reason for consultation: Pt with intentional aspirin overdose 07/27/23 16:18 Consult for Sitter Routine Reason for consultation: SI attempt with aspirin overdose 07/27/23 17:19 Consult to Care Team Stat Comment: Reason for consultation: medically clear once 2nd salicylate level is less than 30 DS: Diagnosis Discharge Diagnosis (1) Hypokalemia: Status: Acute (2) Overdose of salicylate: Status: Acute (3) Suicide attempt: Status: Acute DS: Summary Hospital Course Hospital Course: from admission H+P by hospitalist Elizabeth Burris, 07/27/23: Pt is a 27-year-old female with a PMH significant for migraines, 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 Patient states that she got into an argument with her godmother, got angry, told her she would try to kill yourself, and then proceeded to swallow handfuls of aspirin pills. Patient unsure of how many pills she took, but estimates it must been over 50 pills. Patient denies premeditation for SI attempt, says she did on ?impulse?: It was not a thought until it was a thought . Patient then left the house and walk around and visited a friend. Friend and patient were unsuccessful at attempting to induce vomiting, so patient's friend was able to convince her to come to the ED for evaluation. Patient states that she has had 2 previous SI attempts, both with overdosing on aspirin though this time she reports taking much more than before. Patient states she has been experiencing mild symptoms: Complains of feeling congested, muffled hearing in right ear, and her stomach feeling ?weird?. Previously had some nausea, though this was after ingesting activated charcoal. Nausea has been intermittent. Also has experienced some dizziness with walking. Denies chest pain/pressure, palpitations. Denies diaphoresis. No shortness of breath. Patient was initially placed on a bicarb drip and ICU consulted, who said patient did not meet ICU level of care and could be admitted to the hospital floor since she was without sirs criteria, no respiratory alkalosis, no anion gap, and no metabolic acidosis. In the ED patient was afebrile with occasionally soft BP as low as 92/55. Labs were significant for potassium is low as 3.0, BUN as low as 5, AST 32, alk-phos 38. Salicylate levels as high as 48.1, now down trending with latest reading 36.1. UA negative for UTI. EKG demonstrated a normal sinus rhythm without evidence of ST elevations or depressions. Pt was treated with IVF, activated charcoal, sodium bicarb, ondansetron, and potassium chloride IV and p.o.. Pt will be admitted to the hospital under observation on telemetry for treatment and further evaluation of intentional aspirin As per Poison Control protocol, patient given sodium bicarbonate infusion. No evidence of anion gap acidosis. Potassium repleted to 3.2; the patient refused further checks. Once salicylate level <30 x2, she was medically cleared for evaluation by the CARE team and transferred to inpatient psychiatry. Time Spent with Patient Time attestation: Total time managing care of this patient today ___25_ minutes. Discharge coordination time: Less than 30 minutes Quality: Safe Use of Opioids Does Pt have an Active Cancer Diagnosis on the Problem List?: No Quality: Stroke Does the patient have a stroke diagnosis?: No Physical Exam Vital Signs: Vital Signs: Last Vital Signs Temp 98.0 F 07/27/23 16:05 Pulse 74 07/27/23 16:05 Resp 18 07/27/23 16:05 BP 130/81 07/27/23 16:05 Pulse Ox 100 07/27/23 16:05 O2 Del Method Room Air 07/27/23 16:05 BMI result Body Mass Index 20.7 Gen: in no acute distress HEENT: sclera anicteric, moist mucus membranes Neck: supple Lungs: clear to auscultation bilaterally Heart: regular rate and rhythm, no murmurs Abd: soft, non-tender, non-distended Ext: no edema Skin: warm/well-perfused Neuro: alert and oriented x3, no focal findings Psych: restricted affect DS: Data Data Completed and Pending Completed studies during hospitalization [Text1]: Laboratory Results WBC 7.5 X10*3/uL (4.8-10.8) 07/27/23 01:08 RBC 3.90 X10*6/uL (4.20-5.50) L 07/27/23 01:08 Hgb 12.4 g/dl (12.0-16.0) 07/27/23 01:08 Hct 35.3 % (37.0-47.0) L 07/27/23 01:08 MCV 90.5 fL (80.0-98.0) 07/27/23 01:08 MCH 31.8 pg (27.0-33.0) 07/27/23 01:08 MCHC 35.1 g/dl (31.0-35.0) H 07/27/23 01:08 RDW 11.8 % (11.0-16.0) 07/27/23 01:08 Plt Count 243 X10*3/uL (160-400) 07/27/23 01:08 MPV 8.5 fL (9.4-12.3) L 07/27/23 01:08 Absolute Nucleated RBC 0.000 X10*3/uL (0.0-0.012) 07/27/23 01:08 Nucleated RBC % (auto) 0.0 /100WBC (0.0-0.2) 07/27/23 01:08 VBG pH 7.44 (7.32-7.43) H 07/28/23 00:03 VBG pCO2 36 mmHg 07/28/23 00:03 VBG pO2 86 mmHg 07/28/23 00:03 VBG HCO3 25 mmol/L (22-26) 07/28/23 00:03 VBG O2 Saturation 98.0 % 07/28/23 00:03 VBG Base Excess 1.5 mmol/L 07/28/23 00:03 Sodium 138 mmol/L (135-145) 07/27/23 23:58 Potassium 3.2 mmol/L (3.3-5.1) L 07/27/23 23:58 Chloride 110 mmol/L (96-108) H 07/27/23 23:58 Carbon Dioxide 24 mmol/L (22-29) 07/27/23 23:58 Anion Gap 7 (12-20) L 07/27/23 23:58 BUN 5 mg/dL (9-16) L 07/27/23 23:58 Creatinine 0.73 mg/dL (0.5-1.4) 07/27/23 23:58 Estim Creat Clear Calc 106.8 07/27/23 23:58 Estimated GFR > 60 07/27/23 23:58 Random Glucose 85 mg/dL (60-115) 07/27/23 23:58 Calcium 8.5 mg/dL (8.4-10.2) 07/27/23 23:58 Magnesium 1.9 mg/dL (1.6-2.6) 07/27/23 12:07 Total Bilirubin 0.1 mg/dL (0.0-1.0) 07/27/23 05:06 Direct Bilirubin < 0.2 mg/dL (0.0-0.5) 07/27/23 05:06 AST 13 U/L (5-31) 07/27/23 05:06 ALT 9 U/L (0-31) 07/27/23 05:06 Alkaline Phosphatase 31 U/L (39-117) L 07/27/23 05:06 Total Protein 5.8 g/dL (6.5-8.0) L 07/27/23 05:06 Albumin 3.4 g/dL (3.5-5.0) L 07/27/23 05:06 TSH 0.42 uIU/mL (0.32-4.0) 07/27/23 14:18 Beta HCG, Quant < 2 mIU/mL 07/27/23 01:08 Urine Color Yellow 07/28/23 04:27 Urine Appearance Clear 07/28/23 04:27 Urine pH 8.5 (5.0-9.0) 07/28/23 04:27 Ur Specific [place] 1.025 (1.005-1.025) 07/28/23 04:27 Urine Protein 300 (3+) mg/dL (Neg-Trace) H 07/28/23 04:27 Urine Glucose (UA) 250 mg/dL (Negative) H 07/28/23 04:27 Urine Ketones 15 mg/dL (Negative) 07/28/23 04:27 Urine Blood Negative (Negative) 07/28/23 04:27 Urine Nitrite Negative (Negative) 07/28/23 04:27 Ur Leukocyte Esterase Negative (Negative) 07/28/23 04:27 Urine RBC 3-5 /HPF (0-2) H 07/28/23 04:27 Urine WBC 6-10 /HPF (0-5) H 07/28/23 04:27 Ur Squamous Epith Cells 6-10 /HPF (0-2) 07/28/23 04:27 Urine Bacteria Trace (None Seen) 07/28/23 04:27 Hyaline Casts 0-2 /LPF (0-2) 07/28/23 04:27 Salicylates 14.5 mg/dL (15-30) L 07/27/23 23:58 Urine Opiates Screen Not Detected (Not Detect) 07/27/23 01:05 Urine Fentanyl Screen Not Detected (Not Detect) 07/27/23 01:05 Acetaminophen < 17 mcg/mL (<30) 07/27/23 05:06 Ur Barbiturates Screen Not Detected (Not Detect) 07/27/23 01:05 Ur Phencyclidine Scrn Not Detected (Not Detect) 07/27/23 01:05 Ur Amphetamines Screen Not Detected (Not Detect) 07/27/23 01:05 U Benzodiazepines Scrn Not Detected (Not Detect) 07/27/23 01:05 [place] < 0.10 mmol/L (0.60-1.20) L 07/27/23 14:18 Urine Cocaine Screen Not Detected (Not Detect) 07/27/23 01:05 U Marijuana (THC) Screen POSITIVE (Not Detect) H 07/27/23 01:05 Ethyl Alcohol < 10 mg/dL 07/27/23 01:08 COVID-19 (PHYLLIS) Negative (Negative) 07/27/23 01:05 COVID-19 Clin Com See Note 07/27/23 01:05 Discharge Plan Discharge Patient Disposition: Xfer Psychiatric Hosp Discharge Diagnosis: salicylate overdose, hypokalemia, suicidality Referrals: Psych Covering [Provider Group] - 1 Week Physician,Unknown J [Primary Care Provider] - Discharge Medications: New nicotine 14 mg/24 hr Patch 24 Hour 14 mg transdermal DAILY Qty: 30 0RF Continued trazodone 50 mg Tablet 50 mg PO BEDTIME PRN (Reason: Insomnia) Qty: 15 1RF olanzapine 10 mg Tablet 10 mg PO BEDTIME Qty: 15 1RF olanzapine 10 mg Tablet 10 mg PO Q6H PRN (Reason: agitation) Qty: 15 1RF hydroxyzine HCl 50 mg Tablet 50 mg PO Q4H PRN (Reason: Anxiety) Qty: 60 1RF lithium carbonate 300 mg Capsule 300 mg PO BID Qty: 30 1RF mirtazapine 15 mg Tablet 15 mg PO BEDTIME Qty: 15 1RF propranolol 20 mg Tablet 20 mg PO TID Qty: 45 1RF Protocol: Hold for SBP/HR < HOLD for SBP < : 90 HOLD for HR < : 60 sertraline 50 mg Tablet 50 mg PO DAILY Qty: 15 1RF Discharge Orders: Discharge Order (Routine); Ordered 07/28/23 Ordered By: Naye Lagos Diet: Advance to usual diet Activity on Discharge: As tolerated Stand Alone Forms: Patient Portal Discharge page Care Plan Goals: mental health Health Concerns: salicylate overdose, hypokalemia, suicidality Plan of Treatment: transfer to inpatient psychiatry
--- NOTE | 2023-07-27 17:50 | PC.NURSE ---
Patient removed IV from left arm after completion of IV K+, declines last two bags. Provider aware. Patient requesting nicotine patch, provider notified
[2023-07-27] MEDS: Nicotine 14 MG PATCH.TD24 TRANSDERMA (18:03)
--- NOTE | 2023-07-27 18:42 | PC.NURSE ---
Per posion control drawn x 1 more asa level then okay to stop asa levels as long as lower than 28.3
[2023-07-28] VITALS: BP 110/57; PULSE 60; RESP 17; TEMP 37; O2SAT 98
[2023-07-28 00:07] LABS: Venous Blood Gas Refer to POC result
[2023-07-28 00:08] LABS: VBG Base Excess 1.5 mmol/L; VBG HCO3 25 mmol/L (22-26); VBG pCO2 36 mmHg; VBG pH 7.44 (7.32-7.43); VBG pO2 86 mmHg
[2023-07-28 00:26] LABS: Anion Gap 7 (12-20); Blood Urea Nitrogen 5 mg/dL (9-16); Calcium 8.5 mg/dL (8.4-10.2); Carbon Dioxide 24 mmol/L (22-29); Chloride 110 mmol/L (96-108); Creatinine Clr Calc Pharmacy 106.8; Estimated Glomerular Filt Rate > 60; Glucose Random 85 mg/dL (60-115); Potassium 3.2 mmol/L (3.3-5.1); Sodium 138 mmol/L (135-145)
[2023-07-28 00:27] LABS: Salicylate 14.5 mg/dL (15-30)
[2023-07-28] MEDS: Lactated Ringers 1,000 ML 100 ML IVCONT (02:37)
--- NOTE | 2023-07-28 03:50 | PC.NURSE ---
Addendum entered by Niyah Luna RN 07/28/23 04:12: Pt self removed LR. refusing to have it connected anymore. made aware. Original Note: Pt admitted [facility] from [facility]. A&Ox4, deafness in the left ear. Per patient she left the cochlear implant at home, able to hear with right ear. LR infusing as ordered. Poison control following patient, f/u labs obtained. Notified poison control. Per poison control no need for further labs and will sign off. Constant supervisor asbestos removal at bedside, SI precautions maintained.
--- NOTE | 2023-07-28 04:23 | PC.NURSE ---
Per patient she would like only her friend Diego to know she is in the hospital and to give information too. Pt does not have phone number at this time.
[2023-07-28 05:29] LABS: Appearance Urine Clear; Color Urine Yellow; Glucose Urine UA 250 mg/dL (Negative); Leukocyte Esterase Urine Negative (Negative); Nitrite Urine Negative (Negative); PH 8.5 (5.0-9.0); Specific Gravity - Urine 1.025 (1.005-1.025); UMIC TRIGGER UA YES; Urine Blood Negative (Negative); Urine Ketones 15 mg/dL (Negative); Urine Protein 300 (3+) mg/dL (Neg-Trace)
[2023-07-28 05:34] LABS: Bacteria Urine Trace (None Seen); Hyaline Casts Urine 0-2 /LPF (0-2)
--- NOTE | 2023-07-28 08:42 | MHC.CM.PN ---
[facility] DELIVERED PT LETHARGIC AND UNWILLING TO PARTICIPATE IN CM ASSESSMENT AT THIS TIME. PER CHART REVIEW, PT LIVES WITH FAMILY. PT IS INDEPENDENT AND IS EMPLOYED F/T A [employer]. + COVID VAX NO HCP ON FILE. CM WILL ATTEMPT TO MEET WITH PT WHEN MORE ALERT AND WILLING TO PARTICIPATE.
--- NOTE | 2023-07-28 09:08 | MHC.CARE ---
CARE team met with patient, she will be presented for inpatient LOC, pt is aware of the plan
[2023-07-28] MEDS: Nicotine 14 MG PATCH.TD24 TRANSDERMA (09:47)
[2023-07-28 11:18] VITALS: BP 122/76; PULSE 84; RESP 18; TEMP 37; O2SAT 99
--- NOTE | 2023-07-28 11:20 | MHC.CM.PN ---
DP: PT WILL BE TRANSFERRING TO INPT PSYCH .
== END 2023-07-28 13:34 ==
LOC: HO.ED 17:17 → HO.EDOVER 17:34 → HO.IMC 19:28
PROVIDERS: Emergency Medicine; Internal Medicine Cardiovascular Disease; Admitting Provider Student in an Organized Health Care Education/Training Program; Emergency Provider Emergency Medicine Emergency Medical Services; Visit Provider Family Medicine
DX: E87.6 Hypokalemia (principal); T14.91XA Suicide attempt, initial encounter; T39.091A Poisoning by salicylates, accidental (unintentional), initial encounter; F60.3 Borderline personality disorder; F31.81 Bipolar II disorder; Z20.822 Contact with and (suspected) exposure to COVID-19; Z79.899 Other long term (current) drug therapy; Z87.891 Personal history of nicotine dependence
CPT/HCPCS: 36415; 80048; 80053; 80076; 80143; 80178; 80179; 80307; 81001; 82248; 82803; 83735; 84443; 84702; 85027; 87635; 93005; 96361; 96365; 96366; 96368; 99222; 99285; S9485

== ENCOUNTER → 2023-07-27 00:46 | Outpatient (BNV) | payer MEDICAID, SELFPAY | PROVIDERS: Emergency Provider Emergency Medicine Emergency Medical Services; Visit Provider Student in an Organized Health Care Education/Training Program | DX: E87.6 Hypokalemia (principal); T39.091A Poisoning by salicylates, accidental (unintentional), initial encounter; T14.91XA Suicide attempt, initial encounter | CPT/HCPCS: 99223; 99239 ==

== ENCOUNTER → 2023-07-27 00:46 | Outpatient (BNV) | payer MEDICAID, SELFPAY | PROVIDERS: Emergency Provider Emergency Medicine Emergency Medical Services; Visit Provider Internal Medicine Cardiovascular Disease | DX: T14.91XA Suicide attempt, initial encounter (principal); T39.091A Poisoning by salicylates, accidental (unintentional), initial encounter; F60.3 Borderline personality disorder; F31.81 Bipolar II disorder; E87.6 Hypokalemia | CPT/HCPCS: 99291 ==

== ENCOUNTER 2023-07-28 15:27 | Inpatient (IN) | payer OTHER, SELFPAY ==
--- OUTSIDE RECORDS SUMMARY | 2023-07-28 15:35 | XMS_ITS | Continuity of Care Document ---
Author Name Unknown Organization [facility] Address [address] [place] [address]- Care Team Providers Care Wrapper And Preserver Name Role Phone Not on Staff, PCP Primary Care Physician Unavail able Encounter [facility] [id number] Date(s): 07/15/21 - 08/14/[address] [address]- Attending Physician: Tabitha Funes Admitting Physician: Admtr, Tabitha Referring Physician: Admtr, ArMaco Allergies, Adverse Reactions, Alerts Substance Reaction Severity Status Haldol Active Medications Colace sodium 100 mg oral capsule 100 mg, 1, capsule, By Mouth, 2 times a day, # 60 capsule, Refills 0, Tot. Refills 0, Maintenance, 05/03/20 11:02:00 EDT, Do Not Route Start Date: 05/03/20 Status: Ordered gabapentin 300 mg oral capsule 300 mg, 1, capsule, By Mouth, 3 times a day, # 90 capsule, Refills 0, Tot. Refills 0, Maintenance, 05/03/20 11:02:00 EDT, Do Not Route Start Date: 05/03/20 Status: Ordered SEROquel 100 mg oral tablet 100 mg, 1, tablet, By Mouth, Daily at bedtime, # 30 tablet, Refills 0, Tot. Refills 0, Maintenance,05/03/20 11:02:00 EDT, Do Not Route Start Date: 05/03/20 Status: Ordered Problem List Condition Effective Dates Status Health Status Inform ant Anxiety(Confirmed) Active Depression(Confirmed) Active Social History Social History Type Response Smoking Status 10 or more cigarette s (1/2 pack or more)/day in last 30 days entered on: 04/27/20 Sex
--- OUTSIDE RECORDS SUMMARY | 2023-07-28 15:35 | XMS_ITS | Continuity of Care Document ---
Author Name Unknown Organization [facility] [employer] Address [address] [place] [address]- Care Team Providers Care Waste Examiner Name Role Phone Thaddeus SWANSON, Willie Chawla Primary Care Physician [phone] Encounter [facility] R [id number] Date(s): 11/09/22 - 11/16/22 [facility] [address] [place] [address]- Attending Physician: Luis SWANSON, Mickey Polk Referring Physician: Willie Travis MD Allergies, Adverse Reactions, Alerts Substance Reaction Severity Status Haldol uncontrolled body movements Active [place] Oil 1 tongue itching Active 1tongue itchiness with almonds Medications Flonase Daily, 0 Refills, Maintenance, 05/03/22 14:28:00 EDT, Partial fill upon patient request if the prescription is for a schedule II opioid drug. Start Date: 05/03/22 Status: Ordered ibuprofen 600 mg oral tablet 600 mg, 1, tablet, By Mouth, 3 times a day, PRN, with food, # 15 tablet, Refills 0, Tot. Refills 0,Maintenance, as needed for pain, 09/28/22 19:02:00 EST, Route to Pharmacy Electronically, [id number], Partial fill upon patient reques... Start Date: 09/28/22 Stop Date: 10/03/22 Status: Ordered Nexplanon = 68 mg, Subcutaneous Infusion, Once, 0 Refills, Maintenance, 05/03/22 14:24:00 EDT, Partial fill upon patient request if the prescription is for a schedule II opioid drug. Start Date: 05/03/22 Status: Ordered Oxcarbazepine = 150 mg, By Mouth, 2 times a day, 0 Refills, Maintenance, 05/03/22 14:26:00 EDT, Partial fill uponpatient request if the prescription is for a schedule II opioid drug. Start Date: 05/03/22 Status: Ordered ProAir HFA See Instructions, Inhalation Every 6 hours, 0 Refills, Maintenance, 05/03/22 14:29:00 EDT, Partial fill upon patient request if the prescription is for a schedule II opioid drug. Start Date: 05/03/22 Status: Ordered Vistaril pamoate 25 mg oral capsule 2 capsule = 50 mg, By Mouth, 4 times a day, PRN as needed for anxiety, 0 Refills, Maintenance, 12/23/21 16:00:00 EST, Partial fill upon patient request if the prescription is for a schedule II opioiddrug. Start Date: 12/23/21 Status: Ordered Xulane 150 mcg-35 mcg/24 hr transdermal film, extended release 1 patch, Topically, Every week, apply a new patch weekly (no patch free weeks), # 12 each, 3 Refills, Maintenance, 11/09/22 17:15:00 EST, [id number], Partial fill upon patient request if the prescription is for a schedule II opioid . Start Date: 11/09/22 Status: Ordered Problem List Condition Confirmation Course Effective Dates Status Health St atus Informant Abnormal uterine bleeding (AUB) - heavy irregular menses Confirmed Active Anxiety Confirmed Active Bipolar disorder Confirmed Active Depression Confirmed Active Electronic cigarette use Confirmed Active History of ovarian cysts Confirmed Active Migraine headache Confirmed Active Ovulation pain Confirmed Active Pectus carinatum Confirmed Active PTSD (post-traumatic stress disorder) Confirmed Active No Pap smear results in the [facility] system Confirmed Active Procedures Procedure Date Related Diagnosis Body Site Status Placement of left [place] bone- conduction implant 05/05/22 Completed Extraction of wisdom teeth 2016 Completed Vital Signs Most recent to oldest [Reference Range]: 1 Height 170 cm (11/09/22 4:24 PM) Weight 60.90 kg (11/09/22 4:24 PM) Body Mass Index [18.5-24.99 kg/m2] 21.07 kg/m2 (11/09/22 4:24 PM) Blood Pressure [90-138/55-84 mm Hg] 100/ 58mm Hg (11/09/22 4:24 PM) Blood pressure sites Arm, left (11/09/22 4:24 PM) Weight Obtained Via Standing scale (11/09/22 4:24 PM) Social History Social History Type Response Smoking Status 10 or more cigarette s (1/2 pack or more)/day in last 30 days entered on: 04/27/20 Sex Patient Care team information Care Team Personnel Name: Frida Shah Position: [facility] Outreach Member Role: Lifetime Consulting Physician Name: Teri TONEY, Bry Position: [facility] RN Supv Member Role: Primary Care Nurse Name: Willie Travis MD Position: [facility] Outreach Member Role: PCP Address: Address: [address] [place] [address]- Care Team Related Persons Name: WEST MONTEZ Address: home [address] [place] [address] Name: SHAY SWEENEY Address: home [address] [place] [address]
--- OUTSIDE RECORDS SUMMARY | 2023-07-28 15:35 | XMS_ITS | Continuity of Care Document ---
Author Name Unknown Organization [facility] Address [address] [place] [id number]- Care Team Providers Care Material Hauler Name Role Phone Thaddeus SWANSON, Willie Chawla Primary Care Physician [id number] Date(s): 04/12/22 - 06/08/[address] [address] Attending Physician: Not on Staff, Attending MD Referring Physician: Willie Travis MD Allergies, Adverse Reactions, Alerts Substance Reaction Severity Status Haldol uncontrolled body movements Active [place] Oil 1 tongue itching Active 1tongue itchiness with almonds Medications Flonase Daily, 0 Refills, Maintenance, 05/03/22 14:28:00 EDT, Partial fill upon patient request if the prescription is for a schedule II opioid drug. Start Date: 05/03/22 Status: Ordered Nexplanon = 68 mg, Subcutaneous [...] opioid drug. Start Date: 05/03/22 Status: Ordered SEROquel 100 mg oral tablet 100 mg, 1, tablet, By Mouth, Daily at bedtime, # 30 tablet, Refills 0, Tot. Refills 0, Maintenance,05/03/20 11:02:00 EDT, Do Not Route Start Date: 05/03/20 Status: Ordered Vistaril pamoate 25 mg oral capsule 2 capsule = 50 mg, By Mouth, 4 times a day, PRN as needed for anxiety, 0 Refills, Maintenance, 12/23/21 16:00:00 EST, Partial fill upon patient request if the prescription is for a schedule II opioiddrug. Start Date: 12/23/21 Status: Ordered Problem List Condition Effective Dates Status Health Status Inform ant Anxiety(Confirmed) Active Bipolar disorder(Confirmed) Active Depression(Confirmed) Active Migraine headache(Confirmed) Active Pectus carinatum(Confirmed) Active PTSD (post-traumatic stress disorder)(Confirmed) Active Social History Social History Type Response Smoking Status 10 or more cigarette s (1/2 pack or more)/day in last 30 days entered on: 04/27/20 Sex
--- OUTSIDE RECORDS SUMMARY | 2023-07-28 15:35 | XMS_ITS | Continuity of Care Document ---
Author Name Unknown Organization [facility] ter Address [address] [place] [address]- Care Team Providers Care Director Industrial Museum Name Role Phone Not on Staff, PCP Primary Care Physician Unavail able Encounter [facility] Date(s): 06/20/23 - 06/20/[address] [address]- Encounter Diagnosis Palpitations(Final) - 06/20/23 Discharge Disposition: A-D/C Home Attending Physician: Zulema Roca DO Admitting Physician: Zulema Roca DO Referring Physician: Not on Staff, Referring MD Allergies, Adverse Reactions, Alerts Substance Reaction Severity Status Haldol uncontrolled body movements Active Cactus Oil 1 tongue itching Active 1tongue itchiness [...] 09/28/22 19:02:00 EST, Route to Pharmacy Electronically, [facility] #[id number], Partial fill upon patient reques... Start Date: [...] each, 3 Refills, Maintenance, 11/09/22 17:15:00 EST, [facility] #[id number], Partial fill upon patient request if the [...] results in the CIS system Confirmed Active Results Radiology Reports * Exam Date Time Procedure Performing Provider Status 06/20/23 5:18 PM Chest 2 Views Frontal and Lat Juan Lugo; Auth (Verified) Notes: (Chest 2 Views Frontal and Lat) Reason For Exam: Shortness of Breath RESULT: Chest 2 Views Frontal and Lat PA and lateral chest dated June 20, 2023. Comparison films are from April 28, 2020. HISTORY: Shortness of breath. FINDINGS: The cardiac silhouette is within normal limits for size. Hilar and mediastinal structuresare unremarkable. No airspace infiltrate or pleural effusion is identified. Visualized osseous structures are within normal limits. IMPRESSION: Normal chest x-ray. Examination [address]. Thank you for allowing me to participate in the care of this patient. WSN: [id number] Ordering Physician: Zulema Roca Dictated By: Janes Peterson MD Dictated Date/Time: 06/20/23 5:24 pm Reviewed By: Janes Peterson MD Signed By: Janes Peterson MD Signed Date/Time: 06/20/23 5:24 pm Transcribed By: MICHAEL Transcribed Date/Time: 06/20/23 5:23 pm Vital Signs Most recent to oldest [Reference Range]: 1 2 3 Height 184 cm (06/20/23 2:07 PM) Oxygen Saturation [94-100 %] 100 % (06/20/23 4:08 PM) 96 % (06/20/23 2:07 PM) 100 % (06/20/23 2:07 PM) Pulse Rate [55-90 bpm] 67 bpm (06/20/23 4:08 PM) 98 bpm *H* (06/20/23 2:07 PM) 78 bpm (06/20/23 2:07 PM) Blood Pressure [90-138/55-84 mm Hg] 126/77mm Hg (06/20/23 4:08 PM) 133/83mm Hg (06/20/23 2:07 PM) Respiratory Rate [16-30 br/min] 18 br/min (06/20/23 2:07 PM) Temperature [96.8-100.4 DegF] 98.5 DegF (06/20/23 4:08 PM) 97.7 DegF (06/20/23 2:07 PM) Mode of Delivery (Oxygen) Room air (06/20/23 4:08 PM) Room air (06/20/23 2:07 PM) Room air (06/20/23 2:07 PM) Blood pressure sites Arm, left (06/20/23 4:08 PM) Arm, left (06/20/23 2:07 PM) Temperature Route Oral (06/20/23 4:08 PM) Oral (06/20/23 2:07 PM) Dry Weight 58.1 kg (06/20/23 2:07 PM) Dry Weight Obtained Via Patient/family s tated (06/20/23 2:07 PM) Social History Social History Type Response Smoking Status 10 or more cigarette s (1/2 pack or more)/day in last 30 days entered on: 04/27/20 Sex EKG study * Event Display: ECG 12-Lead Authored Date: Please click on pdf link to open report * Event Display: ECG 12-Lead Authored Date: Ventricular Rate: 64 BPM Atrial Rate: 64 BPM P-R Interval: 140 ms QRS Duration: 82 ms Q-T Interval: 360 ms QTC Calculation(Bazett): 371 ms P Yeso: 74 degrees R Yeso: 91 degrees T Yeso: 64 degrees Normal sinus rhythm Rightward axis Borderline ECG When compared with ECG of 26-DEC-2021 10:09, No significant change was found Confirmed by ROBERT GOMEZ MD ([id number]) on 06/20/2023 7:23:57 PM [place]: ROBERT GOMEZ MD Note * Saul Zuñiga: PERFORM, SIGN, VERIFY Event Display: Patient Education Handout Authored Date: [id number] * Saul Zuñiga: PERFORM Event Display: Patient Education Leaflets Authored Date: [id number] Shortness of Breath (Dyspnea) ?? 077651mb Shortness of Breath (Dyspnea) Shortness of breath is the feeling that you can't catch your breath or get enough air. It's also known as dyspnea. Dyspnea can be caused by many different conditions. They include: ??? Acute asthma attack ??? Worsening of chronic lung diseases such as chronic bronchitis and emphysema (COPD) ??? Heart failure. This is when weak heart muscle causes extra fluid to collect in the lungs. ??? Panic attacks or anxiety. Fear can cause rapid breathing (hyperventilation). ??? Pneumonia, or an infection in the lung tissue ??? Exposure to toxic substances, fumes, smoke, or certain medicines ??? Blood clot in the lung (pulmonary embolism). This is often from a piece of blood clot in adeep vein of the leg (deep vein thrombosis) that breaks off and travels to the lungs. ??? Heart attack or heart-related chest pain (angina) ??? Anemia ??? Collapsed lung (pneumothorax) ??? Dehydration ??? Based on your visit today, the exact cause of your shortness of breath is not certain. Your tests don???t show any of the serious causes of dyspnea. You may need other tests to find out if you have aserious problem. It???s important to watch for any new symptoms or symptoms that get worse. Follow up with your healthcare provider as directed. Home care Follow these tips to take care of yourself at home: ??? When your symptoms are better, go back to your usual activities. ??? If you smoke, you should stop. Join a quit-smoking program or ask your healthcare provider for help. ??? Eat a healthy diet and get plenty of sleep. ??? Get regular exercise.Talk with your healthcare provider before starting to exercise, especially if you have other medical problems. ??? Discuss with your healthcare provider about cutting down on the amount of caffeine and stimulants you consume. ?? Follow-up care Follow up with your healthcare provider, or as advised. If tests were done, you will be told if your treatment needs to be changed. You can call as directed for the results. If an X-ray was taken, you will be told of any new findings that may affect your care. ?? Call 911 Shortness of breath may be a sign of a serious medical problem. For example, it may be a problem with your heart or lungs. Call 911 if you have worsening shortness of breath or trouble breathing, especially with any of the symptoms below: ??? Shortness of breath or wheezing ??? Confusion or difficulty waking ??? Fainting or loss of consciousness ??? Fast or irregular heartbeat ??? Coughing up blood ??? Unusual pain in your chest, arm, shoulder, neck, or upper back ??? Unusual sweating ??? Feeling of doom ??? Lips or skin looks blue, purple, or zuniga in color ??? Feel dizzy ?? When to seek medical advice Call your healthcare provider right away if any of these occur: ??? Redness, pain or swelling in your leg, arm, or other body area ??? Swelling in both legs or ankles ??? Fast weight gain ??? Weakness ??? Fever of 100.4??F (38??C) or higher, or as directed by your healthcare provider ?? Last Reviewed Date: 2021 ?? [id number] [employer]. All rights reserved. This information is not intended as a substitute for professional medical care. Always follow your healthcare professional's instructions. ?? * Darrius JACINTO, Saul Chávez: PERFORM Event Display: Patient Education Leaflets Authored Date: [id number] Heart Palpitations ?? 035620og Heart Palpitations Palpitations are the feeling that your heart is beating hard, fast, or irregular. Some describe it as pounding, flip-flopping in the chest, or skipped beats. Palpitations may occur in someone with heart disease. But they can also occur in a healthy person. Heart-related causes: ??? Heart rhythm problem (arrhythmia) ??? Heart valve disease ??? Disease of the heart muscle (cardiomyopathy) ??? Coronary artery disease ??? High blood pressure Ale-empmj-skuyney causes: ??? Certain medicines such as asthma inhalers and decongestants ??? Some herbal supplements, energydrinks and pills, and weight loss pills ??? Illegal stimulant drugs such as cocaine, crank, methamphetamine, PCP, and ecstasy ??? Caffeine, alcohol, and tobacco ??? Health conditions such as thyroid disease, anemia, anxiety, and panic disorder Sometimes the cause can't be found. Home care Follow these home care tips: ??? Don't use too much caffeine, alcohol, or tobacco, or any stimulantdrugs. ??? Tell your doctor about any prescription or wgto-qwj-pjxdzkh or herbal medicines you take. ?? Follow-up care ??? Follow up with your doctor, or as advised. ?? Call 911 This is the fastest and safest way to get to the emergency department. The paramedics can also start treatment on the way to the hospital, if needed. Don't wait until your symptoms are severe to call 911. These are reasons to call 911: ??? Chest pain ??? Shortness of breath ??? Feeling lightheaded, faint, or dizzy, or losing consciousness ??? Veryirregular heartbeat ??? Rapid heartbeat that makes you uncomfortable ??? Slower than usual heart rate along with symptoms ??? Chest pain with weakness, dizziness,??heavy sweating, nausea, or vomiting??? Extreme drowsiness, confusion, or weakness ??? Weakness of an arm or leg, or on one side of theface ??? Trouble with speech or vision ?? When to seek medical advice Call your healthcare provider right away if you have palpitations that last longer than normal, or are different from your past palpitations. ?? Last Reviewed Date: 2021 ?? [id number] [employer]. All rights reserved. This information is not intended as a substitute for professional medical care. Always follow your healthcare professional's instructions. ?? Patient Care team information Care Team Personnel Name: Frida Shah Position: [facility] Outreach Member Role: Lifetime Consulting Physician Name: Not on Staff, PCP Position: [facility] Physician (General Medicine) Member Role: PCP Name: Bry Williamson RN Position: [facility] RN Supv Member Role: Primary Care Nurse Name: Saul Zuñiga Position: [facility] Associate Professional Member Role: ED Physician Administrative Support Coordinator Address: Address: [address] [place] [address]- Name: Mayte Hernandez RN Position: [facility] ED RN W/OE and Tasks Member Role: Patient Care Provider Name: Ronna Nolan Position: [facility] ED TA [facility] Member Role: Electrical Engineer Mep Name: Zulema Roca DO Position: [facility] Resident Member Role: Admitting Physician Address: Address: [address] [place] [address] Care Team Related Persons Name: WEST MONTEZ Address: home [address] [place] [address]
--- OUTSIDE RECORDS SUMMARY | 2023-07-28 15:35 | XMS_ITS | Continuity of Care Document ---
Author Name Unknown Organization [facility] ter Address [address] [place] [address]- Care Team Providers Care Ditch Repairer Name Role Phone Willie Travis MD Primary Care Physician [phone] Encounter [facility] Date(s): 05/05/22 - 05/05/[address] [address]- Discharge Disposition: A-D/C Home Attending Physician: Jose Jacobs MD Admitting Physician: Jose Jacobs MD Referring Physician: Jose Jacobs MD Allergies, Adverse Reactions, Alerts Substance Reaction Severity Status Haldol uncontrolled body movements Active [place] Oil 1 tongue itching Active 1tongue itchiness [...] carinatum(Confirmed) Active PTSD (post-traumatic stress disorder)(Confirmed) Active Vital Signs Most recent to oldest [Reference Range]: 1 2 3 4 Height 167.64 cm (05/05/22 1:26 PM) 167.64 cm (05/03/22 3:05 PM) Weight 56.3 kg (05/05/22 1:26 PM) 56.82 kg (05/03/22 3:05 PM) Oxygen Saturation [94-100 %] 100 % (05/05/22 5:00 PM) 99 % (05/05/22 4:45 PM) 98 % (05/05/22 4:30 PM) Pulse Rate [55-90 bpm] 71 bpm (05/05/22 1:26 PM) Body Mass Index [18.5-24.99] 20.03 (05/05/22 1:26 PM) 20.22 (05/03/22 3:05 PM) Blood Pressure [90-138/55-84 mm Hg] 126/83mm Hg (05/05/22 5:00 PM) 113/58mm Hg (05/05/22 4:45 PM) 113/66mm Hg (05/05/22 4:30 PM) Respiratory Rate [16-30 br/min] 10 br/min *L* (05/05/22 5:00 PM) 13 br/min *L* (05/05/22 4:45 PM) 16 br/min (05/05/22 4:30 PM) Temperature [96.8-100.4 DegF] 98.3 DegF (05/05/22 5:15 PM) 98.7 DegF (05/05/22 3:00 PM) 98.2 DegF (05/05/22 1:26 PM) Mode of Delivery (Oxygen) Room air (05/05/22 5:15 PM) Room air (05/05/22 5:15 PM) Room air (05/05/22 5:00 PM) Room air (05/05/22 5:00 PM) Blood pressure sites Arm, right (05/05/22 1:26 PM) Temperature Route Temporal (05/05/22 5:15 PM) Temporal (05/05/22 3:00 PM) Temporal (05/05/22 1:26 PM) Dry Weight 56.82 kg (05/03/22 3:05 PM) Social History Social History Type Response Smoking Status 10 or more cigarette s (1/2 pack or more)/day in last 30 days entered on: 04/27/20 Sex
--- OUTSIDE RECORDS SUMMARY | 2023-07-28 15:35 | XMS_ITS | Continuity of Care Document ---
Author Name Unknown Organization [facility] ter Address [address] [place] [address]- Care Team Providers Care Combat Engineer Name Role Phone Willie Travis MD Primary Care Physician [phone] [place] [facility] Date(s): 01/24/22 - 01/24/[address] [address]- Discharge Disposition: A-D/C Home Attending Physician: Emanuel SWANSON [OB], Christiana Hand Admitting Physician: Emanuel SWANSON [OB], Christiana Hand Referring Physician: Emanuel SWANSON [OB], Christiana Hand Allergies, Adverse Reactions, Alerts Substance Reaction Severity Status Haldol Active [place]ada Oil 1 Active 1tongue itchiness with almonds Medications Aygestin 5 mg oral tablet 1 tablet = 5 mg, By Mouth, Daily, Take at bedtime to minimize side effects, # 30 tablet, 0 Refills,Maintenance, 01/24/22 10:02:00 EDT, Tablet, [facility] #[id number], Partial fill upon patient request if the prescription is for a schedule II opi... Start Date: 01/24/22 Status: Ordered cloNIDine 0.1 mg oral tablet 0.1 mg, 1, tablet, By Mouth, 3 times a day, PRN, # 30 tablet, Refills 0, Tot. Refills 0, Maintenance, Anxiety, 12/28/21 10:24:00 EST, Route to Pharmacy Electronically, [facility] #[id number], Partial fill upon patient request if the prescription... Start Date: 12/28/21 Status: Ordered Nicotine 7 mg/24 hour patch 1 patch, Topically, Daily, # 30 patch, 1 Refills, Acute 12/28/22 9:00:00 EST, 12/28/21 10:27:00 EST, Patch, [facility] #[id number], Partial fill upon patient request if the prescription is for aschedule II opioid drug., 1 patch Topically Daily,... Start Date: 12/28/21 Stop Date: 12/28/22 Status: Ordered SEROquel 100 mg oral tablet 100 mg, 1, tablet, By Mouth, Daily at bedtime, # 30 tablet, Refills 0, Tot. Refills 0, Maintenance,05/03/20 11:02:00 EDT, Do Not Route Start Date: 05/03/20 Status: Ordered Trileptal 150 mg oral tablet 150 mg, 1, tablet, By Mouth, 2 times a day, Refills 0, Maintenance, 12/23/21 15:58:00 EST, Partial fill upon patient request if the prescription is for a schedule II opioid drug. Start Date: 12/23/21 Status: Ordered Vistaril pamoate 25 mg oral [...] Most recent to oldest [Reference Range]: 1 Weight 58.8 kg (01/24/22 8:31 AM) Oxygen Saturation [94-100 %] 100 % (01/24/22 8:31 AM) Blood Pressure [90-138/55-84 mm Hg] 136/ 75mm Hg (01/24/22 8:31 AM) Respiratory Rate [16-30 br/min] 20 br/mi n (01/24/22 8:31 AM) Temperature [96.8-100.4 DegF] 98.4 DegF (01/24/22 8:31 AM) Mode of Delivery (Oxygen) Room air (01/24/22 8:31 AM) Social History Social History Type Response Smoking Status 10 or more cigarette s (1/2 pack or more)/day in last 30 days entered on: 04/27/20 Sex
--- OUTSIDE RECORDS SUMMARY | 2023-07-28 15:35 | XMS_ITS | Continuity of Care Document ---
Author Name Unknown Organization [facility] Jaime [employer] Address [address] [place] [address]- Care Team Providers Care Auricular Acupuncturist Name Role Phone Thaddeus SWANSON, Willie Chawla Primary Care Physician [phone] [id number] Date(s): 09/29/22 - 10/29/[address] [facility] [address] [place] [address]- Allergies, Adverse Reactions, Alerts Substance Reaction Severity Status Haldol uncontrolled body movements Active [place] Oil 1 tongue itching Active 1tongue itchiness [...] 09/28/22 19:02:00 EST, Route to Pharmacy Electronically, [email or web address] #[id number], Partial fill upon patient reques... Start Date: [...] Date: 12/23/21 Status: Ordered Problem List Condition Confirmation Course Effective Dates Status Health St atus Informant Anxiety Confirmed Active Bipolar disorder Confirmed Active Depression Confirmed Active Migraine headache Confirmed Active Pectus carinatum Confirmed Active PTSD (post-traumatic stress disorder) Confirmed Active Social History Social History Type Response Smoking Status 10 or more cigarette s (1/2 pack or more)/day in last 30 days entered on: 04/27/20 Sex Patient Care team information Care Team Personnel Name: Frida Shah Position: [facility] Outreach Member Role: Lifetime Consulting Physician Name: Bry Williamson RN Position: [facility] RN Supv Member Role: Primary Care Nurse Name: Willie Travis MD Position: [facility] Outreach Member Role: PCP Address: Address: [address] [place] [address]- Care Team Related Persons Name: WEST MONTEZ Address: home [address] [place] [address] Name: SHAY SWEENEY Address: home [address] [place] [address]
--- OUTSIDE RECORDS SUMMARY | 2023-07-28 15:35 | XMS_ITS | Continuity of Care Document ---
Author Name Unknown Organization [facility] Address [address] [place] [address]- Care Team Providers Care Cordwood Cutter Helper Name Role Phone Not on Staff, PCP Primary Care Physician Unavail able Encounter [facility] Date(s): 06/15/21 - 07/15/21 [facility] [address] [place] [address]- Allergies, Adverse Reactions, Alerts Substance Reaction Severity [...]
--- OUTSIDE RECORDS SUMMARY | 2023-07-28 15:35 | XMS_ITS | Continuity of Care Document ---
Author Name Unknown Organization [facility] Jaime [facility] [facility] Address [address] [facility] [address], [address] [place] [address]- Care Team Providers Care Manager Acquisition Name Role Phone Thaddeus SWANSON, Willie Chawla Primary Care Physician [id number] Date(s): 02/01/23 - 03/03/23 [facility] [address] [facility] [address] [place] [address]- Attending Physician: Tabitha Funes Admitting Physician: AdmtrTabitha Referring Physician: Admtr, Ar8 Allergies, Adverse Reactions, Alerts Substance Reaction Severity Status Haldol uncontrolled body movements Active Closplint Oil 1 tongue itching Active 1tongue itchiness [...] 09/28/22 19:02:00 EST, Route to Pharmacy Electronically, [facility] #[id number], Partial fill upon patient reques... Start Date: [...] each, 3 Refills, Maintenance, 11/09/22 17:15:00 EST, [facility] #[id number], Partial fill upon patient request if the [...] results in the CIS system Confirmed Active Social History Social History Type Response Smoking Status 10 or more cigarette s (1/2 pack or more)/day in last 30 days entered on: 04/27/20 Sex Patient Care team information Care Team Personnel Name: Frida Shah Position: [facility] Outreach Member Role: Lifetime Consulting Physician Name: Bry Williamson RN Position: S RN Supv Member Role: Primary Care Nurse Name: Willie Travis MD Position: [facility] Outreach Member Role: PCP Address: Address: [address] [place], [place] [address]- Care Team Related Persons Name: WEST MONTEZ Address: home [address] [place] [address] Name: SHAY SWEENEY Address: home [address] [place] [address]
--- OUTSIDE RECORDS SUMMARY | 2023-07-28 15:35 | XMS_ITS | Continuity of Care Document ---
Author Name Unknown Organization [facility] [employer] Address [address] [facility], [address] [place] [address]- Care Team Providers Care Hand Ii Cutter Name Role Phone Willie Travis MD Primary Care Physician En[facility] [id number] Date(s): 01/03/23 - 03/03/23 [facility] [address] [facility] [place] [address] Attending Physician: Not on Staff, Attending MD Referring Physician: Willie Travis MD Allergies, Adverse Reactions, Alerts Substance Reaction Severity Status Haldol uncontrolled body movements Active Nebo Oil 1 tongue itching Active 1tongue itchiness [...] 09/28/22 19:02:00 EST, Route to Pharmacy Electronically, [facility] #[id number], Partial fill upon patient reques... Start Date: [...] each, 3 Refills, Maintenance, 11/09/22 17:15:00 EST, [facility] #[id number], Partial fill upon patient request if the [...] Care Team Personnel Name: Frida Shah Position: [facility] Outreach Member Role: Lifetime Consulting Physician Name: Bry Williamson RN Position: S RN Supv Member Role: Primary Care Nurse Name: Willie Travis MD Position: S Outreach Member Role: PCP Address: Address: [address] [place] [address] Care Team Related Persons Name: WEST MONTEZ Address: home [address] [place] [address] Name: SHAY SWEENEY Address: home [address] [place] [address]
--- OUTSIDE RECORDS SUMMARY | 2023-07-28 15:35 | XMS_ITS | Continuity of Care Document ---
Author Name Unknown Organization [facility] ter Address [address] [place] [address]- Care Team Providers Care School Counselor Name Role Phone Not on Staff, PCP Primary Care Physician Unavail able Encounter [facility] Date(s): 06/02/21 - 06/03/[address] [address]- Discharge Disposition: A-D/C Walkout Attending Physician: Not on Staff, Attending MD Admitting Physician: Not on Staff, Admitting MD Referring Physician: Not on Staff, Referring MD [...] Status Inform ant Anxiety(Confirmed) Active Depression(Confirmed) Active Vital Signs Most recent to oldest [Reference Range]: 1 2 Oxygen Saturation [94-100 %] 99 % (06/02/21 5:49 PM) 95 % (06/02/21 5:45 PM) Pulse Rate [55-90 bpm] 80 bpm (06/02/21 5:49 PM) 94 bpm *H* (06/02/21 5:45 PM) Blood Pressure [90-138/55-84 mm Hg] 134/ 100mm Hg (06/02/21 5:49 PM) Respiratory Rate [16-30 br/min] 18 br/mi n (06/02/21 5:49 PM) 18 br/min (06/02/21 5:45 PM) Temperature [96.8-100.4 DegF] 98.8 DegF (06/02/21 5:49 PM) Mode of Delivery (Oxygen) Room air (06/02/21 5:49 PM) Temperature Route Oral (06/02/21 5:49 PM) Social History Social History Type Response Smoking Status 10 or more cigarette s (1/2 pack or more)/day in last 30 days entered on: 04/27/20 Sex
--- OUTSIDE RECORDS SUMMARY | 2023-07-28 15:35 | XMS_ITS | Continuity of Care Document ---
Author Name Unknown Organization [facility] ter Address [address] [place] [address]- Care Team Providers Care Tire Assembler Name Role Phone Willie Travis MD Primary Care Physician [phone] [place] [facility] [place]/24/[place] - 01/24/[address] [address]- Discharge Disposition: Transferred to short-term general hospit Attending Physician: Sunil Gallagher MD Admitting Physician: Sunil Gallagher MD Referring Physician: Not on Staff, Referring MD Allergies, Adverse Reactions, Alerts Substance Reaction Severity Status Haldol Active [place] Oil 1 Active 1tongue itchiness with almonds Medications Aygestin 5 mg oral tablet 1 tablet = 5 mg, By Mouth, Daily, Take at bedtime to minimize side effects, # 30 tablet, 0 Refills,Maintenance, 01/24/22 10:02:00 EDT, Tablet, [facility] #[id number], Partial fill upon patient request if the prescription is for a schedule II opi... Start Date: 01/24/22 Status: Ordered cloNIDine 0.1 mg oral tablet 0.1 mg, 1, tablet, By Mouth, 3 times a day, PRN, # 30 tablet, Refills 0, Tot. Refills 0, Maintenance, Anxiety, 12/28/21 10:24:00 EST, Route to Pharmacy Electronically, [facility] #[id number], Partial fill upon patient request if the prescription... Start Date: 12/28/21 Status: Ordered Nicotine 7 mg/24 hour patch 1 patch, Topically, Daily, # 30 patch, 1 Refills, Acute 12/28/22 9:00:00 EST, 12/28/21 10:27:00 EST, Patch, [facility] #[id number], Partial fill upon patient request if the [...] recent to oldest [Reference Range]: 1 2 Height 169 cm (01/24/22 7:35 AM) Weight 58.4 kg (01/24/22 7:35 AM) Oxygen Saturation [94-100 %] 100 % (01/24/22 7:35 AM) 100 % (01/24/22 7:31 AM) Pulse Rate [55-90 bpm] 109 bpm *H* (01/24/22 7:35 AM) 128 bpm *H* (01/24/22 7:31 AM) Respiratory Rate [16-30 br/min] 18 br/mi n (01/24/22 7:35 AM) Temperature [96.8-100.4 DegF] 98.2 DegF (01/24/22 7:35 AM) Mode of Delivery (Oxygen) Room air (01/24/22 7:35 AM) Room air (01/24/22 7:31 AM) Temperature Route Oral (01/24/22 7:35 AM) Dry Weight 58.4 kg (01/24/22 7:35 AM) Social History Social History Type Response Smoking Status 10 or more cigarette s (1/2 pack or more)/day in last 30 days entered on: 04/27/20 Sex
--- OUTSIDE RECORDS SUMMARY | 2023-07-28 15:35 | XMS_ITS | Continuity of Care Document ---
Author Name Unknown Organization [facility] Address [address] [place] [address]- Care Team Providers Care Veterinary Laboratory Technician Name Role Phone Not on Staff, PCP Primary Care Physician Unavail able Encounter [facility] Date(s): 06/15/21 - 07/15/21 [facility] [address] [place] [address]- Allergies, Adverse Reactions, Alerts Substance Reaction Severity [...]
--- OUTSIDE RECORDS SUMMARY | 2023-07-28 15:36 | XMS_ITS | Continuity of Care Document ---
Author Name Unknown Organization [facility] Address [address] [place] [address]- Care Team Providers Care Housecleaner Floor Name Role Phone Not on Staff, PCP Primary Care Physician Unavail able Encounter [facility] Date(s): 06/15/21 - 08/14/[address] [address]- Attending Physician: Not on Staff, Attending MD Allergies, Adverse Reactions, Alerts Substance Reaction [...]
--- OUTSIDE RECORDS SUMMARY | 2023-07-28 15:36 | XMS_ITS | Continuity of Care Document ---
Author Name Unknown Organization [facility] Address [address] [place] [address]- Care Team Providers Care Manager Branch Name Role Phone Not on Staff, PCP Primary Care Physician Unavail able Encounter [facility] Date(s): 06/20/21 - 07/20/21 [facility] [address] [place] [address]- Allergies, Adverse Reactions, Alerts Substance Reaction Severity [...]
--- OUTSIDE RECORDS SUMMARY | 2023-07-28 15:36 | XMS_ITS | Continuity of Care Document ---
Author Name Unknown Organization [facility] [employer] [employer] [facility] Address [address], [address] [place] [address]- Care Team Providers Care Tosser Name Role Phone Thaddeus SWANSON, Willie Chawla Primary Care Physician [id number] 10[facility]02[facility]22 - 11/01/22 [facility] [address], [address] [place] [address]- Allergies, Adverse Reactions, Alerts Substance Reaction Severity Status Haldol uncontrolled body movements Active [place] Oil 1 tongue itching Active 1tongue itchiness [...] 09/28/22 19:02:00 EST, Route to Pharmacy Electronically, [facility] #[id number], Partial fill upon patient reques... Start Date: [...] Care Team Personnel Name: Frida Shah Position: [facility] Outreach Member Role: Lifetime Consulting Physician Name: Bry Williamson RN Position: [facility] RN Supv Member Role: Primary Care Nurse Name: Willie Travis MD Position: [facility] Outreach Member Role: PCP Address: Address: [address] [place] [address]- Care Team Related Persons Name: WEST MONTEZ Address: home [address] [place] [address] Name: SHAY SWEENEY Address: home [address] [place] [address]
--- OUTSIDE RECORDS SUMMARY | 2023-07-28 15:36 | XMS_ITS | Continuity of Care Document ---
Author Name Unknown Organization [facility] Address [address] [place] [address]- Care Team Providers Care Assembler And Tester Electronics Name Role Phone Thaddeus SWANSON, Willie Chawla Primary Care Physician [phone] Encounter [facility] [place] Date(s): 03/15/22 - 04/14/[address] [address] Allergies, Adverse Reactions, Alerts Substance Reaction Severity Status Haldol Active [place] Oil 1 Active 1tongue itchiness with almonds Medications Aygestin 5 mg oral tablet 1 tablet = 5 mg, By Mouth, Daily, Take at bedtime to minimize side effects, # 30 tablet, 0 Refills,Maintenance, 01/24/22 10:02:00 EDT, Tablet, [facility] #[id number], Partial fill upon patient request if the prescription is for a schedule II opi... Start Date: 01/24/22 Status: Ordered cloNIDine 0.1 mg oral tablet 0.1 mg, 1, tablet, By Mouth, 3 times a day, PRN, # 30 tablet, Refills 0, Tot. Refills 0, Maintenance, Anxiety, 12/28/21 10:24:00 EST, Route to Pharmacy Electronically, [facility] #[id number], Partial fill upon patient request if the prescription... Start Date: 12/28/21 Status: Ordered Nicotine 7 mg/24 hour patch 1 patch, Topically, Daily, # 30 patch, 1 Refills, Acute 12/28/22 9:00:00 EST, 12/28/21 10:27:00 EST, Patch, [facility] #[id number], Partial fill upon patient request if the [...]
--- OUTSIDE RECORDS SUMMARY | 2023-07-28 15:36 | XMS_ITS | Continuity of Care Document ---
Author Name Unknown Organization [facility] [employer] Address [address], [address] [place] [address]- Care Team Providers Care Computer Language Coder Name Role Phone Thaddeus SWANSON, Willie Chawla Primary Care Physician [id number] Date(s): 11/17/22 - 12/17/22 [facility] [address], [address] [place] [address]- Allergies, Adverse Reactions, Alerts Substance Reaction Severity Status Haldol uncontrolled body movements Active [place] Oil 1 tongue itching Active 1tongue itchiness [...] 09/28/22 19:02:00 EST, Route to Pharmacy Electronically, [facility] #[id number], Partial fill upon patient reques... Start Date: [...] each, 3 Refills, Maintenance, 11/09/22 17:15:00 EST, [facility] #[id number], Partial fill upon patient request if the [...] Care Team Personnel Name: Frida Shah Position: S Outreach Member Role: Lifetime Consulting Physician Name: Bry Williamson RN Position: S RN Supv Member Role: Primary Care Nurse Name: Willie Travis MD Position: S Outreach Member Role: PCP Address: Address: [address] [place] [address]- Care Team Related Persons Name: TC WEST Address: home [address] [place] [address] Name: SHAY SWEENEY Address: home [address] [place] [address]
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
--- OUTSIDE RECORDS SUMMARY | 2023-07-28 15:36 | XMS_ITS | Continuity of Care Document ---
Author Name Unknown Organization [facility] ter Address [address] [place] [address]- Care Team Providers Care Manager Hospice Name Role Phone Not on Staff, PCP Primary Care Physician Unavail able [facility] Date(s): 04/20/20 - 04/21/[address] [address]- [facility] Discharge Disposition: A-D/C Walkout Attending Physician: Not on Staff, Attending MD Admitting Physician: Not on Staff, Admitting MD Referring Physician: Not on Staff, Referring MD Allergies, Adverse Reactions, Alerts Substance Reaction Severity Status Haldol Active Medications Ativan 0.5 mg oral tablet 1 tablet = 0.5 mg, By Mouth, Once, 0 Refills, Maintenance, 05/03/17 13:46:38, Tablet Start Date: 05/03/17 Status: Ordered prazosin 2 mg oral capsule 1 capsule = 2 mg, By Mouth, 3 times a day, 0 Refills, Maintenance, 12/30/15 18:14:37 Start Date: 12/30/15 Status: Ordered PROzac 20 mg oral capsule 20 mg, 1, capsule, By Mouth, Daily, # 30 capsule, Refills 0, Maintenance, 05/03/17 13:46:16 Start Date: 05/03/17 Status: Ordered SEROquel 100 mg oral tablet 100 mg, 1, tablet, By Mouth, 2 times a day, Refills 0, Maintenance, 05/03/17 13:46:30 Start Date: 05/03/17 Status: Ordered Problem List Condition Effective Dates Status Health Status Inform ant Anxiety(Confirmed) Active Depression(Confirmed) Active Vital Signs Most recent to oldest [Reference Range]: 1 Oxygen Saturation [94-100 %] 100 % (04/20/20 11:50 PM) Pulse Rate [55-90 bpm] 82 bpm (04/20/20 11:50 PM) Blood Pressure [90-138/55-84 mm Hg] 132/ 68mm Hg (04/20/20 11:50 PM) Respiratory Rate [16-30 br/min] 18 br/mi n (04/20/20 11:50 PM) Temperature [96.8-100.4 DegF] 98.2 DegF (04/20/20 11:50 PM) Mode of Delivery (Oxygen) Room air (04/20/20 11:50 PM) Blood pressure sites Arm, left (04/20/20 11:50 PM) Temperature Route Oral (04/20/20 11:50 PM) Social History Social History Type Response Smoking Status Former smoker entered on: 10/14/15 Sex
--- OUTSIDE RECORDS SUMMARY | 2023-07-28 15:36 | XMS_ITS | Continuity of Care Document ---
Author Name Unknown Organization [facility] ter Address [address] [place] [address]- Care Team Providers Care Composite Bond Worker Name Role Phone Not on Staff, PCP Primary Care Physician Unavail able En[place] [facility] [place] Date(s): 11/23/20 - 11/23/[address] [address]- Discharge Disposition: A-D/C Walkout Attending Physician: Not [...] Range]: 1 2 Oxygen Saturation [94-100 %] 100 % (11/23/20 10:10 AM) 100 % (11/23/20 10:03 AM) Pulse Rate [55-90 bpm] 84 bpm (11/23/20 10:10 AM) 82 bpm (11/23/20 10:03 AM) Blood Pressure [90-138/55-84 mm Hg] 132/ 81mm Hg (11/23/20 10:10 AM) Respiratory Rate [16-30 br/min] 14 br/mi n *L* (11/23/20 10:10 AM) Temperature [96.8-100.4 DegF] 98.9 DegF (11/23/20 10:10 AM) Mode of Delivery (Oxygen) Room air (11/23/20 10:10 AM) Room air (11/23/20 10:03 AM) Blood pressure sites Arm, right (11/23/20 10:10 AM) Temperature Route Oral (11/23/20 10:10 AM) Social History Social History Type Response Smoking Status 10 or more cigarette s (1/2 pack or more)/day in last 30 days entered on: 04/27/20 Sex
--- OUTSIDE RECORDS SUMMARY | 2023-07-28 15:36 | XMS_ITS | Continuity of Care Document ---
Author Name Unknown Organization [facility] [employer] Address [address], [address] [place] [address]- Care Team Providers Care Brine Well Operator Name Role Phone Thaddeus SWANSON, Willie Chawla Primary Care Physician [phone] [id number] Date(s): 12/26/22 - 01/25/23 [facility] [address] [place] [address]- Allergies, Adverse Reactions, Alerts Substance Reaction Severity Status Haldol uncontrolled body movements Active [place] Oil 1 tongue itching Active 1tongue itchiness [...] 09/28/22 19:02:00 EST, Route to Pharmacy Electronically, [facility] #[id number], Partial fill upon patient reques... Start Date: [...] each, 3 Refills, Maintenance, 11/09/22 17:15:00 EST, [facility] #[id number], Partial fill upon patient request if the prescription is for a schedule II opioid Start Date: 11/09/22 Status: Ordered Problem List [...] Care Team Personnel Name: Frida Shah Position: [facility] Outreach Member Role: Lifetime Consulting Physician Name: Bry Williamson RN Position: S RN Supv Member Role: Primary Care Nurse Name: Willie Travis MD Position: [facility] Outreach Member Role: PCP Address: Address: [address] [place] [address]- Care Team Related Persons Name: WEST MONTEZ Address: home [address] [place] [address] Name: SHAY SWEENEY Address: home [address] [place] [address]
--- OUTSIDE RECORDS SUMMARY | 2023-07-28 15:36 | XMS_ITS | Continuity of Care Document ---
Author Name Unknown Organization [facility] ter Address [address] [place] [address]- Care Team Providers Care Weaver Hand Loom Name Role Phone Not on Staff, PCP Primary Care Physician Unavail able [place] [facility] [place] Date(s): 11/04/21 - 11/04/[address] [address]- Discharge Disposition: A-D/C Home Attending Physician: Shaun Jones DO Admitting Physician: Shaun Jones DO Referring Physician: Not on Staff, Referring [...] 0 Refills, Maintenance, 10/01/21 11:35:00 EST, Tablet, [facility] #[id number], Partial fill upon patientrequest if the prescription is for a schedule II op... Start Date: 10/01/21 Status: Ordered Problem List Condition Effective Dates Status Health Status Inform ant Anxiety(Confirmed) Active Depression(Confirmed) Active Vital Signs Most recent to oldest [Reference Range]: 1 2 Oxygen Saturation [94-100 %] 100 % (11/04/21 11:32 AM) 100 % (11/04/21 9:46 AM) Pulse Rate [55-90 bpm] 81 bpm (11/04/21 11:32 AM) 84 bpm (11/04/21 9:46 AM) Blood Pressure [90-138/55-84 mm Hg] 118/ 65mm Hg (11/04/21 11:32 AM) 138/81mm Hg (11/04/21 9:46 AM) Respiratory Rate [16-30 br/min] 18 br/mi n (11/04/21 11:32 AM) 18 br/min (11/04/21 9:46 AM) Temperature [96.8-100.4 DegF] 98.3 DegF (11/04/21 11:32 AM) 98.6 DegF (11/04/21 9:46 AM) Mode of Delivery (Oxygen) Room air (11/04/21 11:32 AM) Room air (11/04/21 9:46 AM) Blood pressure sites Arm, left (11/04/21 11:32 AM) Arm, left (11/04/21 9:46 AM) Temperature Route Oral (11/04/21 11:32 AM) Oral (11/04/21 9:46 AM) Social History Social History Type Response Smoking Status 10 or more cigarette s (1/2 pack or more)/day in last 30 days entered on: 04/27/20 Sex
--- OUTSIDE RECORDS SUMMARY | 2023-07-28 15:36 | XMS_ITS | Continuity of Care Document ---
Author Name Unknown Organization [facility] [employer] [employer] [facility] Address [address], [address] [place] [address]- Care Team Providers Care Outreach Counselor Name Role Phone Thaddeus SWANSON, Willie Chawla Primary Care Physician [id number] Date(s): 11/09/22 - 12/09/22 [facility] [facility] [employer] [facility] [address] [place] [address]- Attending Physician: Tabitha Funes Admitting Physician: AdmtrTabitha Referring Physician: Admtr, Ar8 Allergies, Adverse Reactions, Alerts Substance Reaction Severity Status Haldol uncontrolled body movements Active [place] Oil 1 tongue itching Active 1tongue itchiness [...] 09/28/22 19:02:00 EST, Route to Pharmacy Electronically, [facility] #[id number], Partial fill upon patient reques... Start Date: [...] each, 3 Refills, Maintenance, 11/09/22 17:15:00 EST, [facility] #[id number], Partial fill upon patient request if the [...] Personnel Name: Frida Shah Position: [facility] Outreach Member Role: Lifetime Consulting Physician Name: Bry Williamson RN Position: S RN Supv Member Role: Primary Care Nurse Name: Willie Travis MD Position: [facility] Outreach Member Role: PCP Address: Address: [address] [place], [place] [address]- Care Team Related Persons Name: WEST MONTEZ Address: home [address] [place] [address] Name: SHAY SWEENEY Address: home [address] [place] [address]
--- OUTSIDE RECORDS SUMMARY | 2023-07-28 15:36 | XMS_ITS | Continuity of Care Document ---
Author Name Unknown Organization [facility] Address [address] [place] [address]- Care Team Providers Care Soap Grinder Name Role Phone Thaddeus SWANSON, Willie Chawla Primary Care Physician [id number] Date(s): 01/24/22 - 04/14/[address] [address] Attending Physician: Not on Staff, Attending MD Referring Physician: Willie Travis MD Allergies, Adverse Reactions, Alerts Substance Reaction Severity Status Haldol Active [place] Oil 1 Active 1tongue itchiness with almonds Medications Aygestin 5 mg oral tablet 1 tablet = 5 mg, By Mouth, Daily, Take at bedtime to minimize side effects, # 30 tablet, 0 Refills,Maintenance, 01/24/22 10:02:00 EDT, Tablet, [facility] #[id number], Partial fill upon patient request if the prescription is for a schedule II opi... Start Date: 01/24/22 Status: Ordered cloNIDine 0.1 mg oral tablet 0.1 mg, 1, tablet, By Mouth, 3 times a day, PRN, # 30 tablet, Refills 0, Tot. Refills 0, Maintenance, Anxiety, 12/28/21 10:24:00 EST, Route to Pharmacy Electronically, [facility] #[id number], Partial fill upon patient request if the prescription... Start Date: 12/28/21 Status: Ordered Nicotine 7 mg/24 hour patch 1 patch, Topically, Daily, # 30 patch, 1 Refills, Acute 12/28/22 9:00:00 EST, 12/28/21 10:27:00 EST, Patch, [facility] #[id number], Partial fill upon patient request if the [...]
--- OUTSIDE RECORDS SUMMARY | 2023-07-28 15:36 | XMS_ITS | Continuity of Care Document ---
Author Name Unknown Organization [facility] Address [address] [place] [address]- Care Team Providers Care Utility Sales And Service Manager Name Role Phone Thaddeus SWANSON, Willie Chawla Primary Care Physician [phone] [id number] Date[facility]s): 05/09/22 - 06/08/[address] [address] Attending Physician: Admtr, Ar8 Admitting Physician: Admtr, Ar8 Referring Physician: Admtr, Ar8 Allergies, Adverse Reactions, Alerts Substance Reaction Severity Status Haldol uncontrolled body movements Active [place] Oil 1 tongue itching Active 1tongue itchiness [...]
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
[2023-07-28 15:45] VITALS: BP 153/77; PULSE 65; RESP 18; TEMP 36.7; O2SAT 100
[2023-07-28 17:29] VITALS: BMI 20.2
--- NOTE | 2023-07-28 19:20 | PC.ADMIT ---
Raisa is a 27 yo female who was admitted to the unit from the Medical Floor after she had an intentional overdose of aspirin in an impulsive unplanned attempt to end her life. During the admission process the patient exhibited an organized and linear thought process and denies HI or AVH. Patient reports high levels of depression and anxiety as well as an underlying suicidal ideation, she reports that this is often the case and currently has no intention to act on her feelings. She reports feeling safe on the unit and states that should would be able to communicate with staff if she felt that she may act to hurt herself. Patient was participatory with the admission process but less so with goals and treatment planning, she reports that her expectations are low and she doubts she will get much help from the admission. Raisa states she stopped taking all of her medications besides mirtazipine and that she refuses to go back on anything else, patient signed a 3 day at the end of the admission process. Skin check was performed by a female RN and female staff member.
[2023-07-28] MEDS: Mirtazapine 15 MG TABLET PO (22:07)
[2023-07-29] MEDS: Nicotine 14 MG PATCH.TD24 TRANSDERMA (08:43)
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
[2023-07-29] MEDS: Magnesium Hydrox/Alum Hydrox 30 ML ORAL.SUSP PO (12:12)
[2023-07-29 12:20] VITALS: BP 137/62; PULSE 69; RESP 16; TEMP 37.1; O2SAT 98
[2023-07-29] MEDS: Mirtazapine 15 MG TABLET PO (22:32)
[2023-07-29] MEDS: Propranolol HCL 10 MG TABLET PO (22:32)
[2023-07-29 22:33] VITALS: BP 150/84; PULSE 66; TEMP 36.8; O2SAT 100
[2023-07-30] MEDS: Nicotine 14 MG PATCH.TD24 TRANSDERMA (08:29)
[2023-07-30 10:30] VITALS: BP 128/72; PULSE 64; RESP 18; TEMP 36.6; O2SAT 97
[2023-07-30] MEDS: Propranolol HCL 10 MG TABLET PO ×2 (10:46→22:21)
[2023-07-30] MEDS: Divalproex Sodium ER 500 MG TAB.ER.24H PO (11:48)
[2023-07-30] MEDS: hydrOXYzine HCL 25 MG TABLET PO (15:48)
--- NOTE | 2023-07-30 18:05 | P.PNPSI_ITS ---
Subjective Subjective Date of Service: 07/30/23 Reason For Visit: s/p OD on asa Interim History: calm, cooperative. remeron helpful. trileptal had been helpful for anxiety, paranoia, racing thoughts. discuss R/B of VPA, pt agrees to VPA trial to start at 500 mg daily. asking for ensure as well. per staff, 3-day up weds. sleeping a lot. pleasant, social. Mental Status Exam Mental Status Exam Narrative: Appearance:casually groomed, fair hygiene, in NAD Behavior: superficially cooperative Psychomotor: no agitation or retardation noted Speech: clear, normal rate/rhythm/volume, spontaneous TP: linear TC: no signs of psychosis or delusions Mood: unknown Affect: somewhat hyper-intense, non-labile SI: none expressed HI: none expressed VH/AH: none expressed Insight/judgment: fair x 2. Memory/cog: alert, oriented x 3. grossly intact to conversational testing. Diagnostics Vital Signs (24Hr): Vital Signs - 24 hr 07/29/23 22:33 07/30/23 10:30 Temperature 98.2 F 97.8 F Pulse Rate 66 64 Respiratory Rate 18 Blood Pressure 150/84 H 128/72 Pulse Oximetry 100 97 Oxygen Delivery Method Room Air Room Air BMI result Body Mass Index 20.2 Medications Medications Current Medications Acetaminophen (Acetaminophen 325 Mg Tablet) 650 mg PO Q6H PRN PRN Reason: Headache/Pain Mild Scale (1-3) Al Hydroxide/Mg Hydroxide (Magnesium Hydrox/Alum Hydrox 30 Ml Oral.Susp) 30 ml PO Q6H PRN PRN Reason: Heartburn/Nausea Last Admin: 07/29/23 12:12 Dose: 30 ml Divalproex Sodium (Divalproex Sodium Er 500 Mg Tab.Er.24h) 500 mg PO DAILY [facility] Last Admin: 07/30/23 11:48 Dose: 500 mg Hydroxyzine HCl (Hydroxyzine Hcl 25 Mg Tablet) 25 mg PO Q6H PRN PRN Reason: Anxiety Last Admin: 07/30/23 15:48 Dose: 25 mg Magnesium Hydroxide (Milk Of Magnesia 30 Ml Oral.Susp) 30 ml PO DAILY PRN PRN Reason: Constipation Mirtazapine (Mirtazapine 15 Mg Tablet) 15 mg PO BEDTIME EMIR Last Admin: 07/29/23 22:32 Dose: 15 mg Nicotine (Nicotine 14 Mg Patch.Td24) 14 mg TRANSDERMA DAILY EMIR Last Admin: 07/30/23 08:29 Dose: 14 mg Nicotine Polacrilex (Nicotine Polacrilex Lozenge 4 Mg Lozenge) 4 mg BUCCAL Q2H PRN PRN Reason: Nicotine Cravings Propranolol HCl (Propranolol Hcl 10 Mg Tablet) 10 mg PO TID PRN; Protocol PRN Reason: Anxiety Last Admin: 07/30/23 10:46 Dose: 10 mg Trazodone HCl (Trazodone Hcl 50 Mg Tablet) 50 mg PO BEDTIME MRX1 PRN PRN Reason: Insomnia Allergies Allergies Allergy/AdvReac Type Severity Reaction Status Date / Time No Known Allergies Allergy Unverified 07/29/20 18:59 [No Known Allergies*] Assessment & Plan Assessment & Plan (1) Suicide gesture: Status: Acute Code(s): X83.8XXA - Intentional self-harm by other specified means, initial encounter (2) Overdose of salicylate: Status: Acute Code(s): T39.091A - Poisoning by salicylates, accidental (unintentional), initial enc ounter (3) Borderline personality disorder: Status: Acute Code(s): F60.3 - Borderline personality disorder Assessment and Plan: trauma hx- ptsd more likely dx - Plan cooperative but willing to take minimal medication discussed ? lamotrigine as option - pt says will go off in dc- has tried before but no effect but didn't take long or get to much of dose that can remember. Remeron helps her sleep - though pointed out to her it wasn't helping before she came - although she also said setiva was - ... Later met with nursing and agreed to prn propranlol for anxiety 07/30: start VPA 500 daily for mood stabilization. reasonably calm and cooperative. c/o labile mood, paranoia, and racing thoughts. h/o help from trileptal but with intolerable side effects. Reason for continued inpatient stay Substantial Risk for: harm to self, inability to function and rapid decompensation Time Spent With Patient Time: Total time managing care of this patient today __25__ minutes.
[2023-07-30 20:25] VITALS: BP 121/77; PULSE 77; RESP 16; TEMP 36.7; O2SAT 100
[2023-07-30 22:10] VITALS: BP 133/83; PULSE 74
[2023-07-30] MEDS: Milk of Magnesia 30 ML ORAL.SUSP PO (22:21)
[2023-07-30] MEDS: Mirtazapine 15 MG TABLET PO (22:21)
[2023-07-31 09:45] VITALS: BP 118/70; PULSE 60; RESP 16; TEMP 36.5; O2SAT 98
[2023-07-31] MEDS: Propranolol HCL 10 MG TABLET PO ×2 (09:48→17:03)
[2023-07-31] MEDS: Divalproex Sodium ER 500 MG TAB.ER.24H PO (09:48)
[2023-07-31] MEDS: Nicotine 14 MG PATCH.TD24 TRANSDERMA (09:49)
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
[2023-07-31] MEDS: polyethylene glycoL 3350 17 GM POWD.PACK PO (13:53)
[2023-07-31 17:00] VITALS: BP 146/92; PULSE 68; O2SAT 98
[2023-07-31 18:00] VITALS: BP 125/76; PULSE 67; RESP 16; TEMP 36.8; O2SAT 100
[2023-08-01] MEDS: Divalproex Sodium ER 500 MG TAB.ER.24H PO (09:42)
[2023-08-01 09:52] VITALS: BP 122/81; PULSE 70; RESP 16; TEMP 36.6; O2SAT 96
--- NOTE | 2023-08-01 11:08 | PC.NURSE ---
Raisa is alert, fully oriented, pleasant and cooperative with discharge process. She verbalized understanding of discharge plan including appointments and medications. She denies current physical complaint.
== END 2023-08-01 11:00 | disposition home or self-care (01) | DRG 753 ==
PROVIDERS: Admitting Provider Psychiatry & Neurology Psychiatry; Visit Provider Psychiatry & Neurology Psychiatry
DX: F31.81 Bipolar II disorder (principal); F17.210 Nicotine dependence, cigarettes, uncomplicated; F60.3 Borderline personality disorder; T39.012A Poisoning by aspirin, intentional self-harm, initial encounter; Z71.6 Tobacco abuse counseling; Z91.51 Personal history of suicidal behavior; Z79.899 Other long term (current) drug therapy

== ENCOUNTER → 2023-07-28 15:27 | Outpatient (BNV) | payer OTHER, SELFPAY | PROVIDERS: Admitting Provider Psychiatry & Neurology Psychiatry; Visit Provider Psychiatry & Neurology Psychiatry | DX: F60.3 Borderline personality disorder (principal); T39.012A Poisoning by aspirin, intentional self-harm, initial encounter; X83.8XXA Intentional self-harm by other specified means, initial encounter | CPT/HCPCS: 99231; 99232 ==